=== PATIENT | female | born 1965 | race African-American/Black ===

== ENCOUNTER → 2016-12-08 | Outpatient (CLI) | payer OTHER ==
[2016-12-08 10:34] LABS: ABSOLUTE LYMPHOCYTES (AUTO) 0.8 10^3/uL (0.5-4.7); ABSOLUTE MONOCYTES (AUTO) 0.5 10^3/uL (0.1-1.4); ABSOLUTE NEUT (AUTO) 2.2 10^3/uL (1.7-8.2); BASOPHILS % (AUTO) 0.6 % (0-2); EOSINOPHILS % (AUTO) 1.1 % (0-6); HEMATOCRIT 35.5 % (36.0-47.0); HEMOGLOBIN 12.3 g/dL (12.0-15.5); HGB HCT DIFFERENCE 1.4; LYMPHOCYTES % (AUTO) 23.7 % (13-45); MEAN CORPUSCULAR HEMOGLOBIN 36.2 pg (27.0-33.4); MEAN CORPUSCULAR HGB CONC 34.7 g/dL (32.0-36.0); MEAN CORPUSCULAR VOLUME 104 fl (80-97); MONOCYTES % (AUTO) 13.2 % (3-13); RED BLOOD COUNT 3.41 10^6/uL (3.72-5.28); RED CELL DISTRIBUTION WIDTH 23.8 % (11.5-14.0); SEGMENTED NEUTROPHILS % (AUTO) 61.4 % (42-78); WHITE BLOOD COUNT 3.6 10^3/uL (4.0-10.5)
[2016-12-08 11:04] LABS: ALANINE AMINOTRANSFERASE 89 U/L (9-52); ALBUMIN 4.2 g/dL (3.5-5.0); ALKALINE PHOSPHATASE 68 U/L (38-126); ANION GAP 12 (5-19); ASPARTATE AMINO TRANSFERASE 80 U/L (14-36); BILIRUBIN,DIRECT 0.5 mg/dL (0.0-0.4); BILIRUBIN,TOTAL 0.9 mg/dL (0.2-1.3); BLOOD UREA NITROGEN 9 mg/dL (7-20); C-REACTIVE PROTEIN 10.4 mg/L (<10.0); CARBON DIOXIDE 30 mmol/L (22-30); CHLORIDE 105 mmol/L (98-107); CREATINE KINASE 1594 U/L (30-135); CREATININE RESULT 0.68 mg/dL (0.52-1.25); GLUCOSE 91 mg/dL (75-110); POTASSIUM 3.8 mmol/L (3.6-5.0); SODIUM 147.1 mmol/L (137-145); TOTAL PROTEIN 7.4 g/dL (6.3-8.2); URIC ACID 4.7 mg/dL (2.5-7.5)
[2016-12-08 11:14] LABS: ERYTHROCYTE SEDIMENTATION RATE 35 mm/hr (0-20)
[2016-12-09 10:29] LABS: VITAMIN D 25-HYDROXY 14.1 ng/mL (30.0-100.0)
[2016-12-10 13:32] LABS: ALDOLASE 17.5 U/L (3.3-10.3)
[2016-12-13 07:12] LABS: QUANTIFERON TB ANTIGEN VALUE 0.12 IU/mL (.); QUANTIFERON TB NIL VALUE 0.12 IU/mL (.)
== END ==
LOC: CCC 09:48
DX: M33.20 Polymyositis, organ involvement unspecified (principal); I10 Essential (primary) hypertension
CPT/HCPCS: 36415; 80053; 82085; 82306; 82550; 83036; 84443; 84550; 85025; 85652; 86140; 86480

== ENCOUNTER 2017-01-16 07:06 | Emergency (ER) | payer SELFPAY ==
--- NOTE | 2017-01-16 08:33 | ER Document Report ---
ED General - General Chief Complaint: Shoulder Pain Stated Complaint: BACK/SHOULDER/ARM PAIN Time Seen by Provider: 01/16/17 08:05 Notes: Patient with a h/o HTN, polymyositis comes to the office c/o rt scapular/ posterior shoulder pain x1 week. 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 She began having the pain the next morning. The pain is described as sharp and radiates to the rt UE into the hand. Pt states she will have occ rt hand tingling on occ. Pt states that taking otc ibuprofen did help the discomfort. The pain is made worse when she tries to use her rt arm/shoulder. Denies any fever, URI symptoms, CP, palp, syncope, cough, sob, dyspnea, abd pain, n/v/d, dysuria, or rash. Pt states she is able to ambulate without any CP, sob, dyspnea, PASCUAL. No allergies No prev surgeries No previous history of cancer, NE, CVA. No history of smoking Patient takes amlodipine, Toprol, prednisone, methotrexate. TRAVEL OUTSIDE OF THE [place] IN LAST 30 DAYS: No - Related Data Allergies/Adverse Reactions: No Known Allergies Allergy (Verified 11/18/15 16:16) Past Medical History - Social History Smoking Status: Never Smoker Family History: Reviewed & Not Pertinent Patient has suicidal ideation: No Patient has homicidal ideation: No - Past Medical History Cardiac Medical History: Reports: Hx Hypertension Renal/ Medical History: Denies: Hx Peritoneal Dialysis Musculoskeltal Medical History: Reports Hx Arthritis - raynauds Psychiatric Medical History: Reports: Hx Depression Past Surgical History: Reports: Hx Cardiac Catheterization - Immunizations Hx Diphtheria, Pertussis, Tetanus Vaccination: Yes Hx Pneumococcal Vaccination: 05/07/13 Review of Systems - Review of Systems Notes: REVIEW OF SYSTEMS: CONSTITUTIONAL : Denies fever, chills, or sweats. Denies recent illness. EENT: Denies eye, ear, throat, or mouth pain or symptoms. Denies nasal or sinus congestion or discharge. Denies throat, tongue, or mouth swelling or difficulty swallowing. CARDIOVASCULAR: Denies chest pain. Denies palpitations or racing or irregular heart beat. Denies ankle edema. RESPIRATORY: Denies cough, cold, or chest congestion. Denies shortness of breath, difficulty breathing, or wheezing. GASTROINTESTINAL: Denies abdominal pain or distention. Denies nausea, vomiting , or diarrhea. Denies blood in vomitus, stools, or per rectum. Denies black, tarry stools. Denies constipation. GENITOURINARY: Denies difficulty urinating, painful urination, burning, frequency, blood in urine, or discharge. MUSCULOSKELETAL: see hpi SKIN: Denies rash, lesions or sores. HEMATOLOGIC : Denies easy bruising or bleeding.llen, enlarged glands. NEUROLOGICAL: Denies confusion or altered mental status. Denies passing out or loss of consciousness. Denies dizziness or lightheadedness. Denies headache. Denies weakness or paralysis or loss of use of either side. Denies problems with gait or speech. Denies sensory loss, numbness, or tingling. Denies seizures. ALL OTHER SYSTEMS REVIEWED AND NEGATIVE. Dictation was performed using [employer] voice recognition software Physical Exam - Vital signs Vitals: Temp Pulse Resp BP Pulse Ox 98.3 F 72 16 169/95 H 97 01/16/17 07:10 01/16/17 07:10 01/16/17 07:10 01/16/17 07:10 01/16/17 07:10 Notes: PHYSICAL EXAMINATION: GENERAL: Well-appearing, well-nourished and in no acute distress. HEAD: Atraumatic, normocephalic. EYES: Pupils equal round and reactive to light, extraocular movements intact, sclera anicteric, conjunctiva are normal. ENT: EAC clear b/l. TM's intact b/l without erythema, fluid, or perforation. Nares patent and without discharge. oropharynx clear without exudates. No tonsilar hypertrophy or erythema. Moist mucous membranes. No sinus tenderness. NECK: Normal range of motion, supple without lymphadenopathy. Non-tender. No nuchal rigidity. No meningismus. LUNGS: Breath sounds clear to auscultation bilaterally and equal. No wheezes rales or rhonchi. Chest: no deformity. Symmetric. Non-tender. HEART: Regular rate and rhythm without murmurs, rubs, gallops. ABDOMEN: Soft, nontender, nondistended abdomen. No guarding, no rebound. No masses appreciated. Normal bowel sounds present. No CVA tenderness bilaterally. Musculoskeletal: Rt UE: FROM to passive/active. Strength 5+/5. No RC deficit. Reflexes 2+. Pulses 2+ and equal b/l. No impingement or palp tenderness. Tinel/ phalen neg. Ribbon Winder strength 5+/5. Sensation intact. Back: FROM to passive/active. Strength 5+/5. + tenderness to the rt paraspinal mm near T5-7. Lateral displacement of scapula further causes more superficial discomfort. No bony tenderness. No midline tenderness. No ecchymosis, abrasion, laceration, or signs of trauma/deformity. Tenderness elicited matches pain described. Extremities: No cyanosis, clubbing, or edema b/l. Peripheral pulses 2+ to LE b /l. Capillary refill less than 3 seconds. NEUROLOGICAL: MMSE intact. Cranial nerves grossly intact. Normal speech, normal gait. Normal sensory, motor exams PSYCH: Normal mood, normal affect. SKIN: Warm, Dry, normal turgor, no rashes or lesions noted. Course - Re-evaluation Re-evalutation: Patient has been afebrile, well-hydrated, 51-year-old female who presents with right paraspinal thoracic back pain. Patient is in no acute distress. Vitals are stable. PE remarkable for musculoskeletal etiology. EKG unremarkable. Pulses are equal bilaterally to periphery. Unremarkable neuro exam. H/o HTN. Other low risk factors: no smoking or h/o CA, CVA, NE. Recheck with her PCM in 2 -3 days. Return to ED with worsening symptoms. After performing a Medical Screening Examination, I estimate there is LOW risk for EXPANDING OR RUPTURED ABDOMINAL AORTIC ANEURYSM, CAUDA EQUINA SYNDROME, EPIDURAL MASS LESION, or HERNIATED DISK CAUSING SEVERE SPINAL STENOSIS, thus I consider the discharge disposition reasonable. I have reevaluated this patient multiple times and no significant life threatening changes are noted. The patient and I have discussed the diagnosis and risks, and we agree with discharging home and close follow-up. We also discussed returning to the Emergency Department immediately if new or worsening symptoms occur with the understanding that symptoms and presentations can change. We have discussed the symptoms which are most concerning (e.g., saddle anesthesia, urinary or bowel incontinence or retention, chest pain, sob, dyspnea, palpitations, syncope, HIGHTOWER, changing or worsening pain) that necessitate immediate return. 01/16/17 09:29 - Vital Signs Vital signs: Temp Pulse Resp BP Pulse Ox 98.1 F 81 16 175/92 H 98 06/12/17 10:14 01/16/17 10:14 01/16/17 10:14 01/16/17 10:14 01/16/17 10:14 Discharge - Discharge Clinical Impression: Muscle strain Thoracic back pain Qualifiers: Chronicity: acute Back pain laterality: left Qualified Code(s): M54.6 - Pain in thoracic spine Condition: Stable Disposition: HOME, SELF-CARE Additional Instructions: Rest, Ice Tylenol/ibuprofen as needed Light stretches daily Strength exercises as able Moist heat and massage may help F/u with your PCP in 2-3 days for a recheck Consider consult(s) with Orthopedics for ongoing/worsening symptoms Return to the ED with any worsening pain, swelling, numbness/tingling, muscle weakness, saddle anesthesia, urinary or bowel incontinence or retention, chest pain, shortness of breath, trouble breathing, palpitations, syncope, HIGHTOWER, changing or worsening pain, or development of fever. Prescriptions: Meloxicam 7.5 mg PO BID PRN #30 tablet PRN Reason: Forms: Elevated Blood Pressure, Parent Work Note, Return to Work
--- NOTE | 2017-01-16 09:24 | EKG REPORT ---
SEVERITY:- NORMAL ECG - SINUS RHYTHM : Confirmed by: Meaghan Swanson 16-Jan-2017 09:24:06
[2017-01-16] MEDS ORDERED: KETOROLAC TROMETHAMINE 60 MG/2 ML SDV IM ONE (09:37)
[2017-01-16 10:15] VITALS: BP 175/92
== END 2017-01-16 10:15 | disposition home or self-care (01) ==
LOC: ER 07:06
DX: T14.8 Other injury of unspecified body region (principal); X50.0XXA Overexertion from strenuous movement or load, initial encounter; M54.6 Pain in thoracic spine; M25.511 Pain in right shoulder; R20.2 Paresthesia of skin; I10 Essential (primary) hypertension; M19.90 Unspecified osteoarthritis, unspecified site; Z88.8 Allergy status to other drugs, medicaments and biological substances; Z79.52 Long term (current) use of systemic steroids
CPT/HCPCS: 93005; 99283; 96372; 93010; J1885

== ENCOUNTER → 2017-02-03 | Outpatient (CLI) | payer MEDICARE ==
[2017-02-03 08:19] LABS: ABSOLUTE LYMPHOCYTES (AUTO) 1.1 10^3/uL (0.5-4.7); ABSOLUTE MONOCYTES (AUTO) 0.3 10^3/uL (0.1-1.4); ABSOLUTE NEUT (AUTO) 1.9 10^3/uL (1.7-8.2); BASOPHILS % (AUTO) 0.4 % (0-2); EOSINOPHILS % (AUTO) 1.2 % (0-6); HEMATOCRIT 39.8 % (36.0-47.0); HEMOGLOBIN 13.1 g/dL (12.0-15.5); HGB HCT DIFFERENCE -0.5; LYMPHOCYTES % (AUTO) 32.8 % (13-45); MEAN CORPUSCULAR HEMOGLOBIN 34.9 pg (27.0-33.4); MEAN CORPUSCULAR HGB CONC 32.8 g/dL (32.0-36.0); MEAN CORPUSCULAR VOLUME 106 fl (80-97); MONOCYTES % (AUTO) 9.2 % (3-13); RED BLOOD COUNT 3.74 10^6/uL (3.72-5.28); RED CELL DISTRIBUTION WIDTH 17.4 % (11.5-14.0); SEGMENTED NEUTROPHILS % (AUTO) 56.4 % (42-78); WHITE BLOOD COUNT 3.4 10^3/uL (4.0-10.5)
[2017-02-03 08:52] LABS: ALANINE AMINOTRANSFERASE 162 U/L (9-52); ALBUMIN 4.4 g/dL (3.5-5.0); ALKALINE PHOSPHATASE 68 U/L (38-126); ANION GAP 11 (5-19); ASPARTATE AMINO TRANSFERASE 166 U/L (14-36); BILIRUBIN,DIRECT 0.5 mg/dL (0.0-0.4); BLOOD UREA NITROGEN 12 mg/dL (7-20); C-REACTIVE PROTEIN 5.7 mg/L (<10.0); CARBON DIOXIDE 31 mmol/L (22-30); CHLORIDE 101 mmol/L (98-107); CREATINE KINASE 1332 U/L (30-135); CREATININE RESULT 0.68 mg/dL (0.52-1.25); GLUCOSE 94 mg/dL (75-110); POTASSIUM 3.1 mmol/L (3.6-5.0); TOTAL PROTEIN 7.7 g/dL (6.3-8.2); URIC ACID 4.9 mg/dL (2.5-7.5)
[2017-02-03 09:03] LABS: ERYTHROCYTE SEDIMENTATION RATE 33 mm/hr (0-20)
== END ==
LOC: OD 07:22
PROVIDERS: ATTEND Internal Medicine Rheumatology
DX: M33.20 Polymyositis, organ involvement unspecified (principal); Z79.899 Other long term (current) drug therapy
CPT/HCPCS: 36415; 80053; 82550; 84550; 85025; 85652; 86140

== ENCOUNTER → 2017-07-21 | Outpatient (CLI) | payer MEDICARE ==
[2017-07-21 08:40] LABS: ABSOLUTE EOSINOPHILS # (AUTO) 0.1 10^3/uL (0.0-0.6); ABSOLUTE LYMPHOCYTES (AUTO) 1.2 10^3/uL (0.5-4.7); ABSOLUTE MONOCYTES (AUTO) 0.6 10^3/uL (0.1-1.4); ABSOLUTE NEUT (AUTO) 1.9 10^3/uL (1.7-8.2); BASOPHILS % (AUTO) 0.6 % (0-2); EOSINOPHILS % (AUTO) 1.5 % (0-6); HEMATOCRIT 38.4 % (36.0-47.0); HGB HCT DIFFERENCE 0.6; LYMPHOCYTES % (AUTO) 32.7 % (13-45); MEAN CORPUSCULAR HGB CONC 33.7 g/dL (32.0-36.0); MONOCYTES % (AUTO) 14.8 % (3-13); RED BLOOD COUNT 3.24 10^6/uL (3.72-5.28); RED CELL DISTRIBUTION WIDTH 16.9 % (11.5-14.0); SEGMENTED NEUTROPHILS % (AUTO) 50.4 % (42-78); WHITE BLOOD COUNT 3.7 10^3/uL (4.0-10.5)
[2017-07-21 09:01] LABS: ANISOCYTOSIS 1+; OVALOCYTES 1+; POIKILOCYTOSIS SLIGHT; POLYCHROMASIA SLIGHT
[2017-07-21 09:04] LABS: MEAN CORPUSCULAR VOLUME 119 fl (80-97)
[2017-07-21 09:09] LABS: ALANINE AMINOTRANSFERASE 69 U/L (9-52); ALKALINE PHOSPHATASE 67 U/L (38-126); ANION GAP 9 (5-19); ASPARTATE AMINO TRANSFERASE 81 U/L (14-36); BILIRUBIN,DIRECT 0.4 mg/dL (0.0-0.4); BILIRUBIN,TOTAL 0.7 mg/dL (0.2-1.3); BLOOD UREA NITROGEN 10 mg/dL (7-20); C-REACTIVE PROTEIN 10.9 mg/L (<10.0); CALCIUM 9.3 mg/dL (8.4-10.2); CARBON DIOXIDE 32 mmol/L (22-30); CHLORIDE 104 mmol/L (98-107); CREATINE KINASE 833 U/L (30-135); CREATININE RESULT 0.66 mg/dL (0.52-1.25); GLUCOSE 79 mg/dL (75-110); POTASSIUM 3.5 mmol/L (3.6-5.0); SODIUM 145.4 mmol/L (137-145)
[2017-07-21 09:22] LABS: ERYTHROCYTE SEDIMENTATION RATE 32 mm/hr (0-20)
[2017-07-21 14:34] LABS: PATH REVIEW PATHOLOGIST REVIEWED
== END ==
LOC: OD 07:20
PROVIDERS: ATTEND Internal Medicine Rheumatology
DX: M33.21 Polymyositis with respiratory involvement (principal); E55.9 Vitamin D deficiency, unspecified; M79.1 Myalgia; M35.3 Polymyalgia rheumatica; M25.50 Pain in unspecified joint; Z79.899 Other long term (current) drug therapy; M54.5 Low back pain
CPT/HCPCS: 36415; 80053; 82550; 85025; 85652; 86140

== ENCOUNTER 2017-10-18 11:10 | Emergency (ER) | payer MEDICARE, OTHER ==
--- NOTE | 2017-10-18 12:10 | ER Document Report ---
ED Medical Screen (RME) - General Chief Complaint: General Weakness Stated Complaint: WEAKNESS, LEG PAIN Time Seen by Provider: 10/18/17 12:08 Notes: pt has hx of polymyositis and presents with bilat leg pain/weakness. feels like "flare up" of her polymyo TRAVEL OUTSIDE OF THE [place] IN LAST 30 DAYS: No - Related Data Allergies/Adverse Reactions: No Known Allergies Allergy (Verified 10/18/17 11:11) Past Medical History - Social History Chew tobacco use (# tins/day): No Frequency of alcohol use: None Drug Abuse: None - Past Medical History Cardiac Medical History: Reports: Hx Hypertension Renal/ Medical History: Denies: Hx Peritoneal Dialysis Musculoskeltal Medical History: Reports Hx Arthritis - raynauds Psychiatric Medical History: Reports: Hx Depression Past Surgical History: Reports: Hx Cardiac Catheterization - Immunizations Hx Diphtheria, Pertussis, Tetanus Vaccination: Yes Physical Exam - Vital signs Vitals: Temp Pulse Resp BP Pulse Ox 98.6 F 65 16 133/76 H 100 10/18/17 11:25 10/18/17 11:25 10/18/17 11:25 10/18/17 11:25 10/18/17 11:25 Course - Vital Signs Vital signs: Temp Pulse Resp BP Pulse Ox 98.6 F 65 16 133/76 H 100 10/18/17 11:25 10/18/17 11:25 10/18/17 11:25 10/18/17 11:25 10/18/17 11:25
[2017-10-18 13:15] LABS: HEMATOCRIT 43.1 % (36.0-47.0); HEMOGLOBIN 14.4 g/dL (12.0-15.5); MEAN CORPUSCULAR HEMOGLOBIN 40.2 pg (27.0-33.4); MEAN CORPUSCULAR HGB CONC 33.4 g/dL (32.0-36.0); MEAN CORPUSCULAR VOLUME 121 fl (80-97); PLATELET COUNT 109 10^3/uL (150-450); RED BLOOD COUNT 3.57 10^6/uL (3.72-5.28); RED CELL DISTRIBUTION WIDTH 16.6 % (11.5-14.0); WHITE BLOOD COUNT 5.9 10^3/uL (4.0-10.5)
[2017-10-18 13:39] LABS: ALANINE AMINOTRANSFERASE 54 U/L (9-52); ALBUMIN 4.6 g/dL (3.5-5.0); ALKALINE PHOSPHATASE 72 U/L (38-126); ANION GAP 13 (5-19); ASPARTATE AMINO TRANSFERASE 68 U/L (14-36); BILIRUBIN,DIRECT 0.3 mg/dL (0.0-0.4); BILIRUBIN,TOTAL 0.7 mg/dL (0.2-1.3); BLOOD UREA NITROGEN 10 mg/dL (7-20); CALCIUM 9.8 mg/dL (8.4-10.2); CARBON DIOXIDE 29 mmol/L (22-30); CHLORIDE 104 mmol/L (98-107); CREATINE KINASE 341 U/L (30-135); GLUCOSE 102 mg/dL (75-110); POTASSIUM 4.1 mmol/L (3.6-5.0); TOTAL PROTEIN 7.9 g/dL (6.3-8.2)
[2017-10-18 13:45] LABS: ABSOLUTE LYMPHOCYTES# (MANUAL) 0.8 10^3/uL (0.5-4.7); ABSOLUTE MONOCYTES # (MANUAL) 0.2 10^3/uL (0.1-1.4); ABSOLUTE NEUTROPHILS# (MANUAL) 4.9 10^3/uL (1.7-8.2); ANISOCYTOSIS 2+; BASOPHILS % (MANUAL) 0 % (0-2); EOSINOPHILS % (MANUAL) 0 % (0-6); HYPOCHROMASIA SLIGHT; LYMPHOCYTES % (MANUAL) 13 % (13-45); MONOCYTES % (MANUAL) 3 % (3-13); PLATELET COMMENT DECREASED; POLYCHROMASIA SLIGHT; SEGMENTED NEUTROPHILS % (MAN) 83 % (42-78); TOTAL CELLS COUNTED 100
[2017-10-18] MEDS ORDERED: NORMAL SALINE 1000 ML 1,000 ML IV ONE (13:46)
--- NOTE | 2017-10-18 13:47 | ER Document Report ---
ED General - General Chief Complaint: General Weakness Stated Complaint: WEAKNESS, LEG PAIN Time Seen by Provider: 10/18/17 12:08 Notes: Patient is a 51-year-old female who presents emergency department with past medical history significant for polymyositis and dermatomyositis with a chief complaint of weakness for the past 3 weeks. States it is worse in her legs. Patient follows with Dr. Cardona but states that she skipped her most recent appointment due to scheduling issues. States that last time she saw him was back in July. Her medications include methotrexate, 5 mg of prednisone, folic acid, amlodipine, metoprolol and azathioprine she otherwise denies any. Focal discomfort or pain. She denies any fevers, chills, lethargy, nausea, vomiting, abdominal pain, back pain, pyuria, hematuria, decreased urine output. Patient states she has been drinking plenty of water and taking her medications as directed. Past medical history significant for hypertension, history of atrial fibrillation, as above. Past surgical history is previous tubal ligation Social history admits to former tobacco use denies any alcohol or drug use. Denies any allergies Follows with Dr. Cardona is her primary care provider TRAVEL OUTSIDE OF THE [place] IN LAST 30 DAYS: No - Related Data Allergies/Adverse Reactions: No Known Allergies Allergy (Verified 10/18/17 11:11) Past Medical History - Social History Smoking Status: Never Smoker Chew tobacco use (# tins/day): No Frequency of alcohol use: None Drug Abuse: None Family History: Reviewed & Not Pertinent Patient has suicidal ideation: No Patient has homicidal ideation: No - Past Medical History Cardiac Medical History: Reports: Hx Hypertension Renal/ Medical History: Denies: Hx Peritoneal Dialysis Musculoskeltal Medical History: Reports Hx Arthritis - raynauds Psychiatric Medical History: Reports: Hx Depression Past Surgical History: Reports: Hx Cardiac Catheterization - Immunizations Hx Diphtheria, Pertussis, Tetanus Vaccination: Yes Hx Pneumococcal Vaccination: 05/07/13 Review of Systems - Review of Systems Notes: REVIEW OF SYSTEMS: CONSTITUTIONAL : Denies fever, chills, or sweats. Denies recent illness. EENT: Denies eye, ear, throat, or mouth pain or symptoms. Denies nasal or sinus congestion or discharge. Denies throat, tongue, or mouth swelling or difficulty swallowing. CARDIOVASCULAR: Denies chest pain. Denies palpitations or racing or irregular heart beat. Denies ankle edema. RESPIRATORY: Denies cough, cold, or chest congestion. Denies shortness of breath, difficulty breathing, or wheezing. GASTROINTESTINAL: Denies abdominal pain or distention. Denies nausea, vomiting , or diarrhea. Denies blood in vomitus, stools, or per rectum. Denies black, tarry stools. Denies constipation. GENITOURINARY: Denies difficulty urinating, painful urination, burning, frequency, blood in urine, or discharge. MUSCULOSKELETAL: See HPI Denies any muscle spasms, difficulty walking, extremity pain SKIN: Denies rash, lesions or sores. HEMATOLOGIC : Denies easy bruising or bleeding. LYMPHATIC: Denies swollen, enlarged glands. NEUROLOGICAL: Denies confusion or altered mental status. Denies passing out or loss of consciousness. Denies dizziness or lightheadedness. Denies headache. Denies weakness or paralysis or loss of use of either side. Denies problems with gait or speech. Denies sensory loss, numbness, or tingling. Denies seizures. PSYCHIATRIC: Denies anxiety or stress. Denies depression, suicidal ideation, or homicidal ideation. ALL OTHER SYSTEMS REVIEWED AND NEGATIVE. Dictation was performed using [employer] voice recognition software Physical Exam - Vital signs Vitals: Temp Pulse Resp BP Pulse Ox 98.6 F 65 16 133/76 H 100 10/18/17 11:25 10/18/17 11:25 10/18/17 11:25 10/18/17 11:25 10/18/17 11:25 - Notes Notes: PHYSICAL EXAM GENERAL: Alert, interacts well. HEAD: Normocephalic, atraumatic. EYES: Pupils equal, round, and reactive to light. Extraocular movements intact. ENT: Oral mucosa moist, tongue midline. NECK: Full range of motion. Supple. Trachea midline. LUNGS: Clear to auscultation bilaterally, no wheezes, rales, or rhonchi. No respiratory distress. HEART: Regular rate and rhythm. No murmurs, gallops, or rubs. ABDOMEN: Soft, nondistended, nontender. No guarding, rebound, or rigidity.. Bowel sounds present in all 4 quadrants. EXTREMITIES: Moves all 4 extremities spontaneously. No edema, radial and dorsalis pedis pulses 2/4 bilaterally. No cyanosis. NEUROLOGICAL: Alert and oriented x4. Normal speech. Face symmetric. Tongue protrudes midline. Extraocular motions intact. Pupils are 2 mm and equally reactive. Normal speech, normal gait. 5 out of 5 strength in both the distal and proximal upper and lower extremities bilaterally. Sensation is grossly intact throughout. Finger to nose testing normal. Pronator drift normal. PSYCH: Normal affect, normal mood. SKIN: Warm, dry, normal turgor. No rashes or lesions noted. Course - Re-evaluation Re-evalutation: 10/18/17 14:10 Patient is a 51-year-old female is hemodynamically stable, no acute distress and afebrile. Presentation is consistent with patient's underlying diagnosis of polymyositis and dermatomyositis. Vital signs stable without evidence of fever, dehydration. CBC stable without evidence of leukocytosis, anemia. Chemistry panel stable without any abnormalities. Mild elevation with a CK of 340 without any associated acute renal failure. Urinalysis without any evidence of protein, hematuria. Called Dr Skinner office to see if they have any additional recommendations or any specific follow-up waiting for callback 10/18/17 15:19 Discussed case with patient's nurse who recommends that she does not need any specific discharge medications and agrees that this is consistent with her history. Discussed to have her call their office tomorrow to schedule a follow- up. Patient states she feels much better after IV fluids. His been tolerating p.o. without any difficulty and vital signs remained stable. Patient is stable for discharge home. - Vital Signs Vital signs: Temp Pulse Resp BP Pulse Ox 98.6 F 84 18 125/82 100 10/18/17 11:25 10/18/17 15:00 10/18/17 15:00 10/18/17 15:00 10/18/17 15:00 - Laboratory Result Diagrams: 10/18/17 12:55 10/18/17 12:55 Laboratory results interpreted by me: 10/18/17 10/18/17 12:55 12:55 RBC 3.57 L MCV 121 H MCH 40.2 H RDW 16.6 H Plt Count 109 L Seg Neuts % (Manual) 83 H ESR 35 H Sodium 146.0 H AST 68 H ALT 54 H Creatine Kinase 341 H Discharge - Discharge Clinical Impression: Polymyositis associated with autoimmune disease, Polymyositis with myopathy Condition: Good Disposition: HOME, SELF-CARE Additional Instructions: There is no indication for complications associated with your history of polymyositis. Please be sure to stay hydrated at home. Please call Dr. Cardona' s office tomorrow to discuss follow-up. Please return to the emergency department with any fever, chills, flank/back pain, decreased urine output, nausea, vomiting or any symptoms that are concerning to you. Referrals: NIURKA CARDONA MD [ACTIVE STAFF] - Follow up tomorrow
[2017-10-18 13:53] LABS: APPEARANCE,URINE CLEAR; BILIRUBIN,URINE NEGATIVE (NEGATIVE); COLOR,URINE YELLOW; GLUCOSE, URINE NEGATIVE (NEGATIVE); KETONES,URINE NEGATIVE (NEGATIVE); LEUKOCYTE ESTERASE,URINE NEGATIVE (NEGATIVE); NITRITE,URINE NEGATIVE (NEGATIVE); PROTEIN,URINE NEGATIVE (NEGATIVE); URINE SPECIFIC GRAVITY 1.005; UROBILINOGEN,URINE NEGATIVE mg/dL (<2.0)
[2017-10-18 13:56] LABS: ERYTHROCYTE SEDIMENTATION RATE 35 mm/hr (0-20)
[2017-10-18 16:26] VITALS: BP 132/80
== END 2017-10-18 16:26 | disposition home or self-care (01) ==
LOC: ER 11:10
DX: M33.22 Polymyositis with myopathy (principal); M33.90 Dermatopolymyositis, unspecified, organ involvement unspecified; R53.1 Weakness; Z79.899 Other long term (current) drug therapy; I10 Essential (primary) hypertension; I48.91 Unspecified atrial fibrillation; Z98.51 Tubal ligation status; Z87.891 Personal history of nicotine dependence
CPT/HCPCS: 99285; 36415; 82550; 85025; 85652; 80053; 81001; J7030

== ENCOUNTER 2018-08-16 17:27 | Emergency (ER) | payer MEDICARE ==
--- NOTE | 2018-08-16 18:28 | ER Document Report ---
ED Medical Screen (RME) - General Chief Complaint: Dizziness Stated Complaint: DIZZINESS Time Seen by Provider: 08/16/18 18:26 Notes: 52 years old female presents today noticing a lump on the top of her head last few days. In 2 months history of headache, currently having difficulty in walking and vomiting. Also had blurring of vision .no denies any difficulty in using the upper limbs. A slight swelling noted over the frontoparietal region in the midline. No pronator drift. Good strength over the upper limbs or lower limbs. TRAVEL OUTSIDE OF THE [place] IN LAST 30 DAYS: No - Related Data Allergies/Adverse Reactions: No Known Allergies Allergy (Verified 08/16/18 17:40) Past Medical History - Past Medical History Cardiac Medical History: Reports: Hx Hypertension Renal/ Medical History: Denies: Hx Peritoneal Dialysis Musculoskeltal Medical History: Reports Hx Arthritis - raynauds Psychiatric Medical History: Reports: Hx Depression Past Surgical History: Reports: Hx Cardiac Catheterization - Immunizations Hx Diphtheria, Pertussis, Tetanus Vaccination: Yes Physical Exam - Vital signs Vitals: Temp Pulse Resp BP Pulse Ox 98.8 F 70 16 114/70 100 08/16/18 18:00 08/16/18 18:00 08/16/18 18:00 08/16/18 18:00 08/16/18 18:00 Course - Vital Signs Vital signs: Temp Pulse Resp BP Pulse Ox 98.8 F 70 16 114/70 100 08/16/18 18:00 08/16/18 18:00 08/16/18 18:00 08/16/18 18:00 08/16/18 18:00 Doctor's Discharge - Discharge Referrals: DINO MCDONALD MD [Primary Care Provider] - Follow up as needed
--- NOTE | 2018-08-16 19:34 | RADIOLOGY REPORT (SQ) ---
EXAM DESCRIPTION: CT HEAD WITHOUT COMPLETED DATE/TIME: 08/16/2018 7:20 pm REASON FOR STUDY: Headache/mass COMPARISON: None. TECHNIQUE: Axial images acquired through the brain without intravenous contrast. Images reviewed wi th bone, brain and subdural windows. Images stored on PACS. All CT scanners at this facility use dose modulation, iterative reconstruction, and/or weight based d osing when appropriate to reduce radiation dose to as low as reasonably achievable (ALARA). [facility]: Dose Right [facility]: CareDose [facility]: Dose Right [facility]: Teradose 4D [facility]: Owlparrot RADIATION DOSE: CT Rad equipment meets quality standard of care and radiation dose reduction techniq ues were employed. CTDIvol: 53.2 mGy. DLP: 1070 mGy-cm. mGy. LIMITATIONS: None. FINDINGS: VENTRICLES: Normal size and contour. CEREBRUM: No masses. No hemorrhage. No midline shift. No evidence for acute infarction. Normal gra y/white matter differentiation. No areas of low density in the white matter. CEREBELLUM: No masses. No hemorrhage. No alteration of density. No evidence for acute infarction. EXTRAAXIAL SPACES: No fluid collections. No masses. ORBITS AND GLOBE: No intra- or extraconal masses. Normal contour of globe without masses. CALVARIUM: No fracture. PARANASAL SINUSES: No fluid or mucosal thickening. SOFT TISSUES: No mass or hematoma. OTHER: No other significant finding. IMPRESSION: NORMAL BRAIN CT WITHOUT CONTRAST. EVIDENCE OF ACUTE STROKE: NO. COMMENT: Quality ID # [id number]: Final reports with documentation of one or more dose reduction techniques (e.g., Automated exposure control, adjustment of the mA and/or kV according to patient size, use of iterative reconstruction technique) TECHNICAL DOCUMENTATION: JOB ID: [id number]- All Rights Reserved Reading location - IP/workstation name: [email or web address]
[2018-08-16 19:47] LABS: HEMATOCRIT 35.8 % (36.0-47.0); HEMOGLOBIN 12.7 g/dL (12.0-15.5); MEAN CORPUSCULAR HEMOGLOBIN 44.5 pg (27.0-33.4); MEAN CORPUSCULAR HGB CONC 35.5 g/dL (32.0-36.0); MEAN CORPUSCULAR VOLUME 126 fl (80-97); RED BLOOD COUNT 2.85 10^6/uL (3.72-5.28); RED CELL DISTRIBUTION WIDTH 17.3 % (11.5-14.0)
[2018-08-16 19:48] LABS: PLATELET COUNT 81 10^3/uL (150-450)
[2018-08-16 20:00] LABS: ABSOLUTE LYMPHOCYTES# (MANUAL) 0.5 10^3/uL (0.5-4.7); ABSOLUTE MONOCYTES # (MANUAL) 0.4 10^3/uL (0.1-1.4); ABSOLUTE NEUTROPHILS# (MANUAL) 2.1 10^3/uL (1.7-8.2); BASOPHILS % (MANUAL) 0 % (0-2); EOSINOPHILS % (MANUAL) 2 % (0-6); LYMPHOCYTES % (MANUAL) 15 % (13-45); MONOCYTES % (MANUAL) 13 % (3-13); SEGMENTED NEUTROPHILS % (MAN) 70 % (42-78); TOTAL CELLS COUNTED 100
[2018-08-16 20:01] LABS: ANISOCYTOSIS 1+; POIKILOCYTOSIS SLIGHT; TOXIC GRANULATION SLIGHT
[2018-08-16 20:02] LABS: PLATELET COMMENT DECREASED
[2018-08-16 20:11] LABS: ALANINE AMINOTRANSFERASE 48 U/L (9-52); ALBUMIN 4.3 g/dL (3.5-5.0); ALKALINE PHOSPHATASE 77 U/L (38-126); ANION GAP 8 (5-19); ASPARTATE AMINO TRANSFERASE 85 U/L (14-36); BILIRUBIN,DIRECT 0.6 mg/dL (0.0-0.4); BILIRUBIN,TOTAL 2.1 mg/dL (0.2-1.3); BLOOD UREA NITROGEN 10 mg/dL (7-20); CARBON DIOXIDE 29 mmol/L (22-30); CHLORIDE 105 mmol/L (98-107); GLUCOSE 100 mg/dL (75-110); POTASSIUM 3.7 mmol/L (3.6-5.0); SODIUM 141.8 mmol/L (137-145); TOTAL PROTEIN 7.8 g/dL (6.3-8.2)
--- NOTE | 2018-08-16 21:30 | ER Document Report ---
ED General - General Chief Complaint: Dizziness Stated Complaint: DIZZINESS Time Seen by Provider: 08/16/18 18:26 Notes: Patient is a 52-year-old female that comes to the emergency department for chief complaint of 2 months of symptoms of congestion, runny nose, frequently when she stands up she will get a spinning sensation and occasionally nausea, she states this quickly resolves. She denies imbalance. She denies a spinning sensation now. She states her only current symptom is some congestion. She denies headache. She denies head injury. She states she was examining her skull and she noticed a bump on the left midline which she thinks might be new but she is not certain. She denies fever or chills. Past medical history of polymyositis, on prednisone, following with rheumatology. Also has a past medical history of hypertension. TRAVEL OUTSIDE OF THE [place] IN LAST 30 DAYS: No - Related Data Allergies/Adverse Reactions: No Known Allergies Allergy (Verified 08/16/18 17:40) Past Medical History - General Information source: Patient - Social History Smoking Status: Never Smoker Chew tobacco use (# tins/day): No Frequency of alcohol use: None Drug Abuse: None Lives with: Family Family History: Reviewed & Not Pertinent Patient has suicidal ideation: No Patient has homicidal ideation: No - Past Medical History Cardiac Medical History: Reports: Hx Hypertension Renal/ Medical History: Denies: Hx Peritoneal Dialysis Musculoskeletal Medical History: Reports Hx Arthritis - raynauds Psychiatric Medical History: Reports: Hx Depression Past Surgical History: Reports: Hx Cardiac Catheterization - Immunizations Hx Diphtheria, Pertussis, Tetanus Vaccination: Yes Hx Pneumococcal Vaccination: 05/07/13 Review of Systems - Review of Systems Constitutional: No symptoms reported EENT: See HPI Cardiovascular: No symptoms reported Respiratory: No symptoms reported Gastrointestinal: No symptoms reported Genitourinary: No symptoms reported Female Genitourinary: No symptoms reported Musculoskeletal: No symptoms reported Skin: No symptoms reported Hematologic/Lymphatic: No symptoms reported Neurological/Psychological: See HPI Physical Exam - Vital signs Vitals: Temp Pulse Resp BP Pulse Ox 98.8 F 70 16 114/70 100 08/16/18 18:00 08/16/18 18:00 08/16/18 18:00 08/16/18 18:00 08/16/18 18:00 - Notes Notes: GENERAL: Alert, interacts well. No acute distress. HEAD: Normocephalic, atraumatic. EYES: Pupils equal, round, and reactive to light. Extraocular movements intact. ENT: Oral mucosa moist, tongue midline. Oropharynx unremarkable. Airway patent. Nasal and sinus congestion, sinuses nontender, no nasal septal hematoma, TM's intact. NECK: Full range of motion. Supple. Trachea midline. LUNGS: Clear to auscultation bilaterally, no wheezes, rales, or rhonchi. No respiratory distress. HEART: Regular rate and rhythm. No murmur ABDOMEN: Soft, non-tender. Non-distended. Bowel sounds present in all 4 quadrants. GENITOURINARY: Deferred EXTREMITIES: Moves all 4 extremities spontaneously. No edema, normal radial and dorsalis pedis pulses bilaterally. No cyanosis. BACK: no cervical, thoracic, lumbar midline tenderness. No saddle anesthesia, normal distal neurovascular exam. NEUROLOGICAL: Alert and oriented x3. Normal speech. [cranial nerves II through XII grossly intact]. PSYCH: Normal affect, normal mood. SKIN: Warm, dry, normal turgor. No rashes or lesions noted. Course - Re-evaluation Re-evalutation: I reviewed the workup initiated by triage. CBC, chemistry show mild leukopenia and thrombocytopenia. Patient is on steroids, has a history of polymyositis. This is not significantly changed from prior. Nonspecific given patient's reported symptoms. CAT scan of the head unremarkable. Physical examination unremarkable including patient's scalp, there is not does not appear to be anything new, there is no abscess, mass, or tender area. Patient is congested on examination, no ear infection, no mastoiditis, nontender sinuses, no signs of distress. Normal neurologic exam. Symptoms of vertigo and nausea are intermittent and have been going on for 2 months. Patient's congestion is ongoing and she has been previously evaluated for it. Her neurological exam is normal. She ambulates without any difficulty. Patient denying any current symptoms. Discussed with patient in detail. After discussion decision was made to discharge patient with primary care follow-up including rheumatology follow-up, patient will be started on meclizine and nausea medication along with medication for congestion. I discussed strict return precautions with patient and family member. They state understanding and agreement. - Vital Signs Vital signs: Temp Pulse Resp BP Pulse Ox 98.5 F 64 18 123/73 100 08/16/18 22:26 08/16/18 22:26 08/16/18 22:26 08/16/18 22:26 08/16/18 22:26 - Laboratory Result Diagrams: 08/16/18 19:26 08/16/18 19:26 Laboratory results interpreted by me: 08/16/18 08/16/18 19:26 19:26 WBC 3.0 L RBC 2.85 L Hct 35.8 L MCV 126 H MCH 44.5 H RDW 17.3 H Plt Count 81 L Total Bilirubin 2.1 H Direct Bilirubin 0.6 H AST 85 H Discharge - Discharge Clinical Impression: Vertigo, Nausea, Sinus congestion Condition: Stable Disposition: HOME, SELF-CARE Additional Instructions: The CAT scan of your brain is normal. Your evaluation is reassuring. Your symptoms are most suggestive of labyrinthitis, problem of the inner ear. I recommend using the nasal spray, antihistamine, and meclizine for vertigo. Follow-up with your provider for additional evaluation and management of this. Take Zofran if needed for nausea. Your platelets are slightly low at 81, this needs to be rechecked and monitored by your provider. Return if you worsen including severe headache, vomiting, numbness on one side of your body, or any other concerning or worsening symptoms. Prescriptions: Cetirizine HCl [Zyrtec 10 mg Tablet] 1 tab PO DAILY #30 tablet Fluticasone Propionate [Flonase Nasal Blacklick 50 Mcg/Blacklick 16 gm] 2 sprays NASL Q12 #1 inhaler Meclizine HCl [Antivert 25 mg Tablet] 25 mg PO TID PRN #21 tablet PRN Reason: Ondansetron [Zofran Odt 4 mg Tablet] 1 - 2 tab PO Q4H PRN #15 tab.rapdis PRN Reason: For Nausea/Vomiting Referrals: DINO MCDONALD MD [Primary Care Provider] - Follow up as needed
[2018-08-16] MEDS ORDERED: MECLIZINE HCL 25 MG TABLET PO ONE (21:32)
[2018-08-16 22:27] VITALS: BP 123/73
== END 2018-08-16 22:27 | disposition home or self-care (01) ==
LOC: ER 17:27
DX: R42 Dizziness and giddiness (principal); R11.0 Nausea; R68.89 Other general symptoms and signs; I10 Essential (primary) hypertension
CPT/HCPCS: 99284; 36415; 85025; 80053; 70450; A9270

== ENCOUNTER 2018-08-30 07:46 | Emergency (ER) | payer MEDICARE ==
--- NOTE | 2018-08-30 08:06 | ER Document Report ---
HPI - HPI Time Seen by Provider: 08/30/18 08:06 Pain Level: 1 Notes: 52-year-old female presents to the ED for complaints of sinus congestion, pain and headache similar to last week. Patient was seen in the ED last week for complaints of dizziness, CT of the head unremarkable as well as blood work. Patient has been using Flonase and meclizine without full relief. Patient states she is having yellow drainage from nose. Worse with time, nothing makes better. Patient unsure if she has seasonal allergies. Denies fevers, chills, chest pain,palpitations, shortness of breath, dyspnea, nausea, vomiting, diarrhea, abdominal pain, hematuria,blurred vision, double vision, loss of vision, speech changes, LH, dizziness, syncope, headaches, wheezing, ST, URI, neck pain, weakness, weakness/ numbness and tingling in bilateral upper or lower extremities equally or rash. - REPRODUCTIVE Reproductive: DENIES: : Past Medical History - General Information source: Patient - Social History Smoking Status: Unknown if Ever Smoked Family History: Reviewed & Not Pertinent Patient has suicidal ideation: No Patient has homicidal ideation: No - Past Medical History Cardiac Medical History: Reports: Hx Hypertension Renal/ Medical History: Denies: Hx Peritoneal Dialysis Musculoskeletal Medical History: Reports Hx Arthritis - raynauds Psychiatric Medical History: Reports: Hx Depression Past Surgical History: Reports: Hx Cardiac Catheterization - Immunizations Hx Diphtheria, Pertussis, Tetanus Vaccination: Yes Hx Pneumococcal Vaccination: 05/07/13 Vertical Provider Document - CONSTITUTIONAL Agree With Documented VS: Yes Notes: PHYSICAL EXAMINATION: GENERAL: Well-appearing, well-nourished and in no acute distress. HEAD: Atraumatic, normocephalic. EYES: Pupils equal round and reactive to light, extraocular movements intact, conjunctiva are normal. ENT: TM intact with bilateral serous effusion, no erythema. Nares boggy bilaterally, oropharynx with erythema without exudates. Tenderness to left maxillary sinus with palpation. moist mucous membranes. NECK: Normal range of motion, supple without lymphadenopathy LUNGS: Breath sounds clear to auscultation bilaterally and equal. No wheezes rales or rhonchi. HEART: Regular rate and rhythm without murmurs ABDOMEN: Soft, nontender, nondistended abdomen. No guarding, no rebound. No masses appreciated. Female : deferred Musculoskeletal: Normal range of motion, no pitting or edema. No cyanosis. NEUROLOGICAL: Cranial nerves grossly intact. Normal speech, normal gait. No rmal sensory, motor exams PSYCH: Normal mood, normal affect. SKIN: Warm, Dry, normal turgor, no rashes or lesions noted. - INFECTION CONTROL TRAVEL OUTSIDE OF THE [place] IN LAST 30 DAYS: No Course - Re-evaluation Re-evalutation: 08/30/18 08:40 Afebrile vitals stable no nondistressed, presents for persistent sinus pain, congestion, teeth pain worse when bending over for the last 2 months become progressively worse over the last week, has tried Flonase and meclizine without much improvement. Patient reports she is having yellow drainage from nose. Patient is very have an acute pectoral sinusitis. pt had full workup in ED last week with head Ct and labs, which were unremarkable. History and exam are not consistent with a retropharyngeal abscess or peritonsillar abscess. Airway is patent. No difficulty handling oral secretions. Vitals within normal limits. After performing a Medical Screening Examination, I estimate there is LOW risk for ACUTE GLAUCOMA, TEMPORAL ARTERITIS, MENINGITIS, INCRANIAL HEMORRHAGE, or ISCHEMIC STROKE thus I consider the discharge disposition reasonable. I have reevaluated this patient multiple times and no significant life threatening changes are noted. The patient and I have discussed the diagnosis and risks, and we agree with discharging home with close follow-up with the understanding that symptoms and presentations can change. We also discussed returning to the Emergency Department immediately if new or worsening symptoms occur. We have discussed the symptoms which are most concerning (e.g., changing or worsening symptoms, neck pain, ST, new numbness or weakness, vomiting, fever) that necessitate immediate return. At this time will discharge with return precautions and follow-up recommendations. Verbal discharge instructions given a the bedside and opportunity for questions given. Medication warnings reviewed. Patient is in agreement with this plan and has verbalized understanding of return precautions and the need for primary care follow-up in the next - Vital Signs Vital signs: Temp Pulse Resp BP Pulse Ox 98.6 F 97 16 107/68 100 08/30/18 07:51 08/30/18 07:51 08/30/18 07:51 08/30/18 07:51 08/30/18 07:51 Discharge - Discharge Clinical Impression: Acute bacterial sinusitis Condition: Stable Disposition: HOME, SELF-CARE Instructions: Sinusitis ([facility]) Additional Instructions: Sinusitis You have sinusitis, an infection of the sinus cavities of the face. The sinuses are air-filled chambers which open into the inside of the nose. Bacteria and pus fill a sinus, causing pain, drainage, and fever. Sinusitis is treated with antibiotics. Often, expectorants (to thin the si nus mucous) or decongestants (to reduce swelling) are prescribed as well. Healing requires seven to 10 days. Avoid chemical fumes, pollens, dusts, and smoke (especially cigarette smoke). Keep the air humidified in your bedroom and work area and take plenty of liquids by mouth. This condition can be serious if the infection spreads. If your symptoms worsen, or if you develop severe headache, high fever, stiff neck, or a rash, you must call the doctor or return for re-evaluation. Nasal rinses, blow your nose regularly, is Flonase as directed, take antibiotics with food. Wash your hands, follow-up with primary care provider within the next 24-48 hours. Return immediately for any new or worsening symptoms. Follow up with primary care provider, call tomorrow to make followup a ppointment. Prescriptions: Amox Tr/Potassium Clavulanate [Augmentin 875-125 Tablet] 1 tab PO BID #20 tablet Forms: Return to Work Referrals: DINO MCDONALD MD [EMERITUS] - Follow up tomorrow
[2018-08-30 09:27] VITALS: BP 105/65
== END 2018-08-30 08:45 | disposition home or self-care (01) ==
LOC: ER 07:46
DX: J01.90 Acute sinusitis, unspecified (principal); B96.89 Other specified bacterial agents as the cause of diseases classified elsewhere; R51 Headache; I10 Essential (primary) hypertension
CPT/HCPCS: 99283

== ENCOUNTER 2019-01-07 08:41 | Emergency (ER) | payer MEDICARE ==
--- NOTE | 2019-01-07 09:42 | ER Document Report ---
ED Medical Screen (RME) - General Chief Complaint: Pedal Edema Stated Complaint: FEET PAIN Time Seen by Provider: 01/07/19 09:39 Primary Care Provider: JEFERSON MACARIO MD [Primary Care Provider] - Follow up as needed Mode of Arrival: Ambulatory Information source: Patient Notes: Patient presents emergency department with complaints of swollen feet for the past 2 months. She has been evaluated by arthritic doctor with medication but she reports the med is not working but she did not follow back up with them. Denies all other symptoms such as shortness of breath chest pain fever vomiting diarrhea. Denies history of cardiac disease. Reports history of arthritis I have greeted and performed a rapid initial assessment of this patient. A comprehensive ED assessment and evaluation of the patient, analysis of test results and completion of the medical decision making process will be conducted by additional ED providers. Dictation of this chart was performed using voice recognition software; therefore, there may be some unintended grammatical error s. TRAVEL OUTSIDE OF THE [place] IN LAST 30 DAYS: No - Related Data Allergies/Adverse Reactions: No Known Allergies Allergy (Verified 01/07/19 08:42) Past Medical History - Past Medical History Cardiac Medical History: Reports: Hx Hypertension Renal/ Medical History: Denies: Hx Peritoneal Dialysis Musculoskeltal Medical History: Reports Hx Arthritis - raynauds Psychiatric Medical History: Reports: Hx Depression Past Surgical History: Reports: Hx Cardiac Catheterization - Immunizations Hx Diphtheria, Pertussis, Tetanus Vaccination: Yes Physical Exam - Vital signs Vitals: Temp Pulse Resp BP Pulse Ox 98.4 F 69 16 100/65 100 01/07/19 08:45 01/07/19 08:45 01/07/19 08:45 01/07/19 08:45 01/07/19 08:45 Course - Vital Signs Vital signs: Temp Pulse Resp BP Pulse Ox 97.9 F 64 18 112/69 100 01/07/19 14:51 01/07/19 14:51 01/07/19 14:51 01/07/19 14:51 01/07/19 14:51 - Laboratory Result Diagrams: 01/07/19 10:00 01/07/19 10:00 Laboratory results interpreted by me: 01/07/19 01/07/19 01/07/19 10:00 10:00 10:00 WBC 3.0 L RBC 2.77 L Hgb 11.7 L Hct 33.9 L MCV 122 H MCH 42.1 H RDW 18.4 H Plt Count 102 L Monocytes % (Manual) 14 H Abs Neuts (Manual) 1.6 L Carbon Dioxide 31 H BUN 6 L Glucose 128 H Total Bilirubin 1.9 H Direct Bilirubin 0.6 H AST 56 H Ur Leukocyte Esterase TRACE H Doctor's Discharge - Discharge Clinical Impression: Peripheral edema, Polymyositis associated with autoimmune disease Condition: Good Disposition: HOME, SELF-CARE Instructions: Edema, Peripheral ([facility]) Additional Instructions: Please follow-up with your regular doctor. It is possible that the amlodipine that you take daily can be leading to the swelling. Amlodipine has a known side effect of causing peripheral edema. If you would like to see if the amlodipine is causing this then please stop that medication and the edema usually will resolve over the course of a couple of weeks. You may benefit from wearing some compression stockings. Most pharmacies have these in the medical laboratory scientist section. Please keep your legs elevated as often as you can as this may help with some of the edema. Of note, your bilirubin levels have been elevated the last 2 blood draws that have been performed here at our hospital. Your liver function studies are mildly elevated but much improved from prior. Please discuss these findings with your doctor as well. Referrals: JEFERSON MACARIO MD [Primary Care Provider] - Follow up as needed
[2019-01-07 10:26] LABS: HEMATOCRIT 33.9 % (36.0-47.0); HEMOGLOBIN 11.7 g/dL (12.0-15.5); MEAN CORPUSCULAR HEMOGLOBIN 42.1 pg (27.0-33.4); MEAN CORPUSCULAR HGB CONC 34.5 g/dL (32.0-36.0); MEAN CORPUSCULAR VOLUME 122 fl (80-97); PLATELET COUNT 102 10^3/uL (150-450); RED BLOOD COUNT 2.77 10^6/uL (3.72-5.28); RED CELL DISTRIBUTION WIDTH 18.4 % (11.5-14.0)
[2019-01-07 10:42] LABS: APPEARANCE,URINE SLIGHTLY-CLOUDY; BILIRUBIN,URINE NEGATIVE (NEGATIVE); COLOR,URINE YELLOW; GLUCOSE, URINE NEGATIVE (NEGATIVE); KETONES,URINE NEGATIVE (NEGATIVE); LEUKOCYTE ESTERASE,URINE TRACE (NEGATIVE); NITRITE,URINE NEGATIVE (NEGATIVE); PROTEIN,URINE NEGATIVE (NEGATIVE); URINE SPECIFIC GRAVITY 1.008; UROBILINOGEN,URINE NEGATIVE mg/dL (<2.0)
[2019-01-07 10:55] LABS: ALANINE AMINOTRANSFERASE 45 U/L (9-52); ALBUMIN 3.5 g/dL (3.5-5.0); ALKALINE PHOSPHATASE 72 U/L (38-126); ANION GAP 5 (5-19); ASPARTATE AMINO TRANSFERASE 56 U/L (14-36); BILIRUBIN,DIRECT 0.6 mg/dL (0.0-0.4); BILIRUBIN,TOTAL 1.9 mg/dL (0.2-1.3); BLOOD UREA NITROGEN 6 mg/dL (7-20); CALCIUM 8.8 mg/dL (8.4-10.2); CARBON DIOXIDE 31 mmol/L (22-30); CHLORIDE 107 mmol/L (98-107); GLUCOSE 128 mg/dL (75-110); POTASSIUM 3.8 mmol/L (3.6-5.0); SODIUM 143.4 mmol/L (137-145); TOTAL PROTEIN 6.6 g/dL (6.3-8.2)
[2019-01-07 10:56] LABS: ABSOLUTE LYMPHOCYTES# (MANUAL) 0.8 10^3/uL (0.5-4.7); ABSOLUTE MONOCYTES # (MANUAL) 0.4 10^3/uL (0.1-1.4); ABSOLUTE NEUTROPHILS# (MANUAL) 1.6 10^3/uL (1.7-8.2); ANISOCYTOSIS 2+; BASOPHILS % (MANUAL) 1 % (0-2); EOSINOPHILS % (MANUAL) 6 % (0-6); LYMPHOCYTES % (MANUAL) 25 % (13-45); MONOCYTES % (MANUAL) 14 % (3-13); NUCLEATED RED BLOOD CELLS 2 /100 WBC (0); SEGMENTED NEUTROPHILS % (MAN) 54 % (42-78); TOTAL CELLS COUNTED 100
[2019-01-07 10:57] LABS: PLATELET COMMENT DECREASED
--- NOTE | 2019-01-07 12:22 | ER Document Report ---
ED General - General Chief Complaint: Pedal Edema Stated Complaint: FEET PAIN Time Seen by Provider: 01/07/19 09:39 Primary Care Provider: JEFERSON MACARIO MD [Primary Care Provider] - Follow up as needed Mode of Arrival: Ambulatory Notes: 53-year-old female to emergency department chief complaint of lower extremity edema. Did not states also that she has pain in her calves bilaterally. Patient does have significant arthritis with polymyositis. States that she has seen her doctor and they put her on some diuretics. The swelling continues to get worse. Pitting edema now up to her pre-tib area. Complaining of some mild shortness of breath. TRAVEL OUTSIDE OF THE [place] IN LAST 30 DAYS: No - HPI Onset: Other - 2 months ago Onset/Duration: Gradual Severity: Moderate - Related Data Allergies/Adverse Reactions: No Known Allergies Allergy (Verified 01/07/19 08:42) Past Medical History - General Information source: Patient - Social History Smoking Status: Never Smoker Chew tobacco use (# tins/day): No Frequency of alcohol use: None Drug Abuse: None Lives with: Family Family History: Reviewed & Not Pertinent Patient has suicidal ideation: No Patient has homicidal ideation: No - Past Medical History Cardiac Medical History: Reports: Hx Hypertension Renal/ Medical History: Denies: Hx Peritoneal Dialysis Musculoskeletal Medical History: Reports Hx Arthritis - raynauds Psychiatric Medical History: Reports: Hx Depression Past Surgical History: Reports: Hx Cardiac Catheterization - Immunizations Hx Diphtheria, Pertussis, Tetanus Vaccination: Yes Hx Pneumococcal Vaccination: 05/07/13 Review of Systems - Review of Systems Notes: Constitutional: denies: Chills, Diaphoresis, Fever, Malaise, Weakness EENT: denies: Eye discharge, Blurred vision, Tearing, Double vision, Nose congestion, Nose discharge, Throat swelling, Mouth pain Cardiovascular: denies: Palpitations, Heart racing, Orthopnea, +Dyspnea, -Chest pain Respiratory: denies: Cough, Hurts to breathe, Wheezing, _+Shortness of breath Gastrointestinal: denies: Abdominal pain, Diarrhea, Nausea, Vomiting, Black stools, bright red blood in stool Genitourinary: denies: Burning, Dysuria, Discharge, Frequency, Flank pain, Hematuria Musculoskeletal: denies: Joint pain, Joint swelling, Muscle pain, Muscle stiffness, back pain. Complaining of peripheral edema painful bilateral calfs Hematologic/Lymphatic: denies: Anemia, Easy bleeding, Easy bruising, Blood clots Neurological/Psychological: denies: Confusion, Dementia, Depression, Loss of consciousness Skin: No lesions, no masses, no skin breakdown, no abscesses Physical Exam - Vital signs Vitals: Temp Pulse Resp BP Pulse Ox 98.4 F 69 16 100/65 100 01/07/19 08:45 01/07/19 08:45 01/07/19 08:45 01/07/19 08:45 01/07/19 08:45 Interpretation: Normal - General General appearance: Appears well, Alert - HEENT Head: Normocephalic, Atraumatic Eyes: Normal Pupils: PERRL - Respiratory Respiratory status: No respiratory distress Chest status: Nontender Breath sounds: Normal Chest palpation: Normal - Cardiovascular Rhythm: Regular Heart sounds: Normal auscultation Murmur: No - Abdominal Inspection: Normal Distension: No distension Bowel sounds: Normal Tenderness: Nontender Organomegaly: No organomegaly - Back Back: Normal, Nontender - Extremities General upper extremity: Normal inspection, Nontender, Normal color, Normal ROM, Normal temperature General lower extremity: Normal inspection, Tender - Bilateral lower extremity edema with tenderness in the calves bilaterally., Edema, Normal color, Normal ROM, Normal temperature, Normal weight bearing. No: Tim's sign - Neurological Neuro grossly intact: Yes Cognition: Normal Orientation: AAOx4 Sravanthi Coma Scale Eye Opening: Spontaneous [place] Coma Scale Verbal: Oriented [place] Coma Scale Motor: Obeys Commands Sravanthi Coma Scale Total: 15 Speech: Normal Motor strength normal: LUE, RUE, LLE, RLE Sensory: Normal - Psychological Associated symptoms: Normal affect, Normal mood - Skin Skin Temperature: Warm Skin Moisture: Dry Skin Color: Normal Course - Re-evaluation Re-evalutation: 01/07/19 13:05 Laboratory 01/07/19 01/07/19 01/07/19 10:00 10:00 10:00 WBC 3.0 L RBC 2.77 L Hgb 11.7 L Hct 33.9 L MCV 122 H MCH 42.1 H MCHC 34.5 RDW 18.4 H Plt Count 102 L Total Counted 100 Seg Neutrophils % Not Reportable Seg Neuts % (Manual) 54 Lymphocytes % Not Reportable Lymphocytes % (Manual) 25 Monocytes % Not Reportable Monocytes % (Manual) 14 H Eosinophils % Not Reportable Eosinophils % (Manual) 6 Basophils % Not Reportable Basophils % (Manual) 1 Absolute Neutrophils Not Reportable Abs Neuts (Manual) 1.6 L Absolute Lymphocytes Not Reportable Abs Lymphs (Manual) 0.8 Absolute Monocytes Not Reportable Abs Monocytes (Manual) 0.4 Absolute Eosinophils Not Reportable Absolute Eos (Manual) 0.2 Absolute Basophils Not Reportable Abs Basophils (Manual) 0.0 Nucleated RBCs 2 Platelet Comment DECREASED Anisocytosis 2+ Macrocytosis 4+ Sodium 143.4 Potassium 3.8 Chloride 107 Carbon Dioxide 31 H Anion Gap 5 BUN 6 L Creatinine 0.62 Est GFR ( Amer) > 60 Est GFR (Non-Af Amer) > 60 Glucose 128 H Calcium 8.8 Total Bilirubin 1.9 H Direct Bilirubin 0.6 H Neonat Total Bilirubin Not Reportable Neonat Direct Bilirubin Not Reportable Neonat Indirect Bili Not Reportable AST 56 H ALT 45 Alkaline Phosphatase 72 Total Protein 6.6 Albumin 3.5 Urine Color YELLOW Urine Appearance SLIGHTLY-CLOUDY Urine pH 7.0 Ur Specific [place] 1.008 Urine Protein NEGATIVE Urine Glucose (UA) NEGATIVE Urine Ketones NEGATIVE Urine Blood NEGATIVE Urine Nitrite NEGATIVE Urine Bilirubin NEGATIVE Urine Urobilinogen NEGATIVE Ur Leukocyte Esterase TRACE H Urine WBC (Auto) 5 Urine RBC (Auto) 1 Squamous Epi Cells Auto 6 Urine Mucus (Auto) RARE Urine Ascorbic Acid NEGATIVE Monotest 01/07/19 10:00 WBC RBC Hgb Hct MCV MCH MCHC RDW Plt Count Total Counted Seg Neutrophils % Seg Neuts % (Manual) Lymphocytes % Lymphocytes % (Manual) Monocytes % Monocytes % (Manual) Eosinophils % Eosinophils % (Manual) Basophils % Basophils % (Manual) Absolute Neutrophils Abs Neuts (Manual) Absolute Lymphocytes Abs Lymphs (Manual) Absolute Monocytes Abs Monocytes (Manual) Absolute Eosinophils Absolute Eos (Manual) Absolute Basophils Abs Basophils (Manual) Nucleated RBCs Platelet Comment Anisocytosis Macrocytosis Sodium Potassium Chloride Carbon Dioxide Anion Gap BUN Creatinine Est GFR ( Amer) Est GFR (Non-Af Amer) Glucose Calcium Total Bilirubin Direct Bilirubin Neonat Total Bilirubin Neonat Direct Bilirubin Neonat Indirect Bili AST ALT Alkaline Phosphatase Total Protein Albumin Urine Color Urine Appearance Urine pH Ur Specific [place] Urine Protein Urine Glucose (UA) Urine Ketones Urine Blood Urine Nitrite Urine Bilirubin Urine Urobilinogen Ur Leukocyte Esterase Urine WBC (Auto) Urine RBC (Auto) Squamous Epi Cells Auto Urine Mucus (Auto) Urine Ascorbic Acid Monotest NEGATIVE 01/07/19 13:06 With painful swollen calves bilaterally. Has slightly elevated bilirubin but prior labs did show bilirubin higher than this. Has some chronic elevated liver functions. At this time I am ordering a BNP, EKG and a chest x-ray for review. Will order ultrasound the bilateral lower extremities to rule out DVT. 01/07/19 14:19 BMP is normal. EKG normal sinus rhythm no signs of ischemia. Chest x-ray unremarkable. No signs of failure. 01/07/19 14:20 Ultrasound pending. If ultrasound is unremarkable then more likely patient can be discharged. More than likely this is due to her underlying rheumatological issues. If the ultrasounds are negative for DVT then will DC in stable condition and urged close follow-up with her outpatient primary care doctors. Will encourage elevating her feet at night and she may even benefit from wearing some compression stockings. 01/07/19 14:38 On further review of her medication even though patient said she is not on a calcium channel brooke she is in fact on one year and she is taking amlodipine which leads to chronic edema - Vital Signs Vital signs: Temp Pulse Resp BP Pulse Ox 98.4 F 69 16 100/65 100 01/07/19 08:45 01/07/19 08:45 01/07/19 08:45 01/07/19 08:45 01/07/19 08:45 - Laboratory Result Diagrams: 01/07/19 10:00 01/07/19 10:00 Laboratory results interpreted by me: 01/07/19 01/07/19 01/07/19 10:00 10:00 10:00 WBC 3.0 L RBC 2.77 L Hgb 11.7 L Hct 33.9 L MCV 122 H MCH 42.1 H RDW 18.4 H Plt Count 102 L Monocytes % (Manual) 14 H Abs Neuts (Manual) 1.6 L Carbon Dioxide 31 H BUN 6 L Glucose 128 H Total Bilirubin 1.9 H Direct Bilirubin 0.6 H AST 56 H Ur Leukocyte Esterase TRACE H - EKG Interpretation by Co EKG shows normal: Sinus rhythm, [place], Intervals, QRS Complexes, ST-T Waves Discharge - Discharge Clinical Impression: Peripheral edema, Polymyositis associated with autoimmune disease Condition: Good Disposition: HOME, SELF-CARE Instructions: Edema, Peripheral ([facility]) Additional Instructions: Please follow-up with your regular doctor. It is possible that the amlodipine that you take daily can be leading to the swelling. Amlodipine has a known side effect of causing peripheral edema. If you would like to see if the amlodipine is causing this then please stop that medication and the edema usually will resolve over the course of a couple of weeks. You may benefit from wearing some compression stockings. Most pharmacies have these in the medical i d sales section. Please keep your legs elevated as often as you can as this may help with some of the edema. Of note, your bilirubin levels have been elevated the last 2 blood draws that have been performed here at our hospital. Your liver function studies are mildly elevated but much improved from prior. Please discuss these findings with your doctor as well. Referrals: JEFERSON MACARIO MD [Primary Care Provider] - Follow up as needed
--- NOTE | 2019-01-07 13:34 | RADIOLOGY REPORT (SQ) ---
EXAM DESCRIPTION: CHEST 2 VIEWS COMPLETED DATE/TIME: 01/07/2019 1:22 pm REASON FOR STUDY: sob COMPARISON: 11/21/2015 EXAM PARAMETERS: NUMBER OF VIEWS: two views TECHNIQUE: Digital Frontal and Lateral radiographic views of the chest acquired. RADIATION DOSE: NA LIMITATIONS: none FINDINGS: LUNGS AND PLEURA: No opacities, masses or pneumothorax. No pleural effusion. MEDIASTINUM AND HILAR STRUCTURES: No masses or contour abnormalities. HEART AND VASCULAR STRUCTURES: Heart normal size. No evidence for failure. BONES: No acute findings. HARDWARE: None in the chest. OTHER: No other significant finding. IMPRESSION: NO ACUTE RADIOGRAPHIC FINDING IN THE CHEST. TECHNICAL DOCUMENTATION: JOB ID: [id number] [employer]- All Rights Reserved Reading location - IP/workstation name: [email or web address]
[2019-01-07 14:55] VITALS: BP 112/69
--- NOTE | 2019-01-07 19:26 | EKG REPORT ---
SEVERITY:- NORMAL ECG - SINUS RHYTHM : Confirmed by: Justus Maldonado MD 07-Jan-2019 19:24:55
--- NOTE | 2019-01-08 10:21 | XCELERA REPORT ---
[address] [facility] [id number] Lower Extremity Venous Evaluation Procedure: Color flow and duplex imaging bilaterally of the veins of the lower extremities as well as the Common Femoral veins. Right Sided Venous Evaluation Normal vessel filling wall to wall, compression and augmentation as well as Colour flow down to the infrageniculate veins. Left Sided Venous Evaluation Normal vessel filling wall to wall, compression and augmentation as well as Colour flow down to the infrageniculate veins. Interpretation Summary No duplex evidence of DVT or obstruction in the bilateral lower extremities. Name: BO GONZALEZ Age: 53 yrs Gender: Female : 1965 Patient Status: Emergency Patient Location: ER Study Date: 01/07/2019 02:11 PM Reason For Study: Painful calves and edema bilateral lower extremity Ordering Physician: DENISE MCMAHAN Performed By: Pawel Wong : DENISE MCMAHAN > Azeem Cuellar
== END 2019-01-07 14:56 | disposition home or self-care (01) ==
LOC: ER 08:41
DX: R60.0 Localized edema (principal); Z79.899 Other long term (current) drug therapy; D89.89 Other specified disorders involving the immune mechanism, not elsewhere classified; M33.20 Polymyositis, organ involvement unspecified; M19.90 Unspecified osteoarthritis, unspecified site; R06.02 Shortness of breath; M79.662 Pain in left lower leg; M79.661 Pain in right lower leg; I10 Essential (primary) hypertension
CPT/HCPCS: 36415; 71046; 80053; 81001; 83880; 84484; 85025; 86308; 93005; 93010; 93970; 99284

== ENCOUNTER 2019-03-07 12:18 | Emergency (ER) | payer MEDICARE ==
--- NOTE | 2019-03-07 12:47 | ER Document Report ---
ED Medical Screen (RME) - General Chief Complaint: General Weakness Stated Complaint: WEAKNESS IN BOTH LEGS Time Seen by Provider: 03/07/19 12:39 Primary Care Provider: JEFERSON MACARIO MD [Primary Care Provider] - Follow up as needed TRAVEL OUTSIDE OF THE [place] IN LAST 30 DAYS: No - HPI Notes: 03/07/19 12:45 Patient is a 53-year-old female with a history of polymyositis, peripheral edema, hypertension who presents complaining of increased soreness from her hips down the lateral thighs bilaterally over the past 1 to 2 weeks as well as feeling fatigued. Patient states that she does have issues with shortness of breath as well primarily with exertion. Patient states that her shortness of breath is not new to her. Patient states that she has been seen for this issue in her legs before as well, but is coming in because she is starting to feel fatigued. Denies HIGHTOWER, fever, neck pain, URI, CP, Abd pain, dysuria, back pain, or rash. I have treated and performed a rapid initial assessment of this patient. A comprehensive ED assessment and evaluation of the patient, analysis of test results and completion of medical decision making process will be conducted by additional ED providers. PHYSICAL EXAMINATION: GENERAL: Well-appearing, well-nourished and in no acute distress. A&Ox4. Answers questions appropriately. LUNGS: Breath sounds clear to auscultation bilaterally and equal. No wheezes rales or rhonchi. HEART: Regular rate and rhythm without murmurs, rubs, gallops. Extremities: 2+ pitting edema b/l LE's. No calf tenderness. NEUROLOGICAL: Normal speech, normal gait. PSYCH: Normal mood, normal affect. - Related Data Allergies/Adverse Reactions: No Known Allergies Allergy (Verified 03/07/19 12:21) Past Medical History - Social History Chew tobacco use (# tins/day): No Frequency of alcohol use: None Drug Abuse: None - Past Medical History Cardiac Medical History: Reports: Hx Hypertension Renal/ Medical History: Denies: Hx Peritoneal Dialysis Musculoskeltal Medical History: Reports Hx Arthritis - raynauds Psychiatric Medical History: Reports: Hx Depression Past Surgical History: Reports: Hx Cardiac Catheterization - Immunizations Hx Diphtheria, Pertussis, Tetanus Vaccination: Yes Physical Exam - Vital signs Vitals: Temp Pulse Resp BP Pulse Ox 98.7 F 76 16 111/71 95 03/07/19 12:28 03/07/19 12:28 03/07/19 12:28 03/07/19 12:28 03/07/19 12:28 Course - Vital Signs Vital signs: Temp Pulse Resp BP Pulse Ox 98.7 F 76 16 111/71 95 03/07/19 12:28 03/07/19 12:28 03/07/19 12:28 03/07/19 12:28 03/07/19 12:28 Doctor's Discharge - Discharge Referrals: JEFERSON MACARIO MD [Primary Care Provider] - Follow up as needed
[2019-03-07] MEDS ORDERED: KETOROLAC TROMETHAMINE 60 MG/2 ML SDV IM ONE (12:48)
[2019-03-07] MEDS ORDERED: FUROSEMIDE 20 MG TABLET PO ONE (12:48)
[2019-03-07 13:23] LABS: APPEARANCE,URINE SLIGHTLY-CLOUDY; BILIRUBIN,URINE SMALL (NEGATIVE); COLOR,URINE AMBER; GLUCOSE, URINE NEGATIVE (NEGATIVE); HEMATOCRIT 26.7 % (36.0-47.0); HEMOGLOBIN 9.4 g/dL (12.0-15.5); KETONES,URINE TRACE mg/dL (NEGATIVE); LEUKOCYTE ESTERASE,URINE SMALL (NEGATIVE); MEAN CORPUSCULAR HEMOGLOBIN 45.8 pg (27.0-33.4); MEAN CORPUSCULAR HGB CONC 35.1 g/dL (32.0-36.0); MEAN CORPUSCULAR VOLUME 130 fl (80-97); NITRITE,URINE NEGATIVE (NEGATIVE); PROTEIN,URINE NEGATIVE (NEGATIVE); RED BLOOD COUNT 2.05 10^6/uL (3.72-5.28); RED CELL DISTRIBUTION WIDTH 21.4 % (11.5-14.0); WHITE BLOOD COUNT 3.1 10^3/uL (4.0-10.5)
--- NOTE | 2019-03-07 13:26 | RADIOLOGY REPORT (SQ) ---
EXAM DESCRIPTION: CHEST 2 VIEWS COMPLETED DATE/TIME: 03/07/2019 1:14 pm REASON FOR STUDY: LE edema, PASCUAL COMPARISON: 01/07/2019 EXAM PARAMETERS: NUMBER OF VIEWS: two views TECHNIQUE: Digital Frontal and Lateral radiographic views of the chest acquired. RADIATION DOSE: NA LIMITATIONS: none FINDINGS: LUNGS AND PLEURA: No opacities, masses or pneumothorax. No pleural effusion. MEDIASTINUM AND HILAR STRUCTURES: No masses or contour abnormalities. HEART AND VASCULAR STRUCTURES: Heart normal size. No evidence for failure. BONES: No acute findings. HARDWARE: None in the chest. OTHER: No other significant finding. IMPRESSION: NO ACUTE RADIOGRAPHIC FINDING IN THE CHEST. TECHNICAL DOCUMENTATION: JOB ID: [id number] [employer]- All Rights Reserved Reading location - IP/workstation name: [email or web address]
[2019-03-07 13:41] LABS: ALANINE AMINOTRANSFERASE 37 U/L (9-52); ALKALINE PHOSPHATASE 44 U/L (38-126); ANION GAP 5 (5-19); ASPARTATE AMINO TRANSFERASE 72 U/L (14-36); BILIRUBIN,DIRECT 1.6 mg/dL (0.0-0.4); BILIRUBIN,TOTAL 5.7 mg/dL (0.2-1.3); BLOOD UREA NITROGEN 11 mg/dL (7-20); CALCIUM 8.5 mg/dL (8.4-10.2); CARBON DIOXIDE 28 mmol/L (22-30); CHLORIDE 106 mmol/L (98-107); GLUCOSE 100 mg/dL (75-110); POTASSIUM 4.2 mmol/L (3.6-5.0); TOTAL PROTEIN 6.2 g/dL (6.3-8.2)
[2019-03-07 13:45] LABS: PLATELET COUNT 73 10^3/uL (150-450)
[2019-03-07 13:48] LABS: ABSOLUTE LYMPHOCYTES# (MANUAL) 0.5 10^3/uL (0.5-4.7); ABSOLUTE MONOCYTES # (MANUAL) 0.1 10^3/uL (0.1-1.4); BASOPHILS % (MANUAL) 0 % (0-2); EOSINOPHILS % (MANUAL) 1 % (0-6); LYMPHOCYTES % (MANUAL) 17 % (13-45); MONOCYTES % (MANUAL) 3 % (3-13); SEGMENTED NEUTROPHILS % (MAN) 79 % (42-78); TOTAL CELLS COUNTED 100
[2019-03-07 13:50] LABS: ANISOCYTOSIS 3+; HOWELL-JOLLY BODIES PRESENT; OVALOCYTES 1+; POIKILOCYTOSIS 2+; SCHISTOCYTES 1+; TEAR DROP CELLS 1+
[2019-03-07 13:51] LABS: PLATELET COMMENT DECREASED
[2019-03-07] MEDS ORDERED: FOLIC ACID 1 MG TABLET PO ONE (15:14)
[2019-03-07 15:19] LABS: INTERNATIONAL RATION (INR) 2.06; PROTHROMBIN TIME 23.5 SEC (11.4-15.4)
[2019-03-07 15:20] LABS: PARTIAL THROMBOPLASTIN TIME 52.2 SEC (23.5-35.8)
[2019-03-07 16:32] LABS: FOLATE 3.53 ng/mL (>2.76)
--- NOTE | 2019-03-07 17:01 | ER Document Report ---
ED General - General Chief Complaint: General Weakness Stated Complaint: WEAKNESS IN BOTH LEGS Time Seen by Provider: 03/07/19 12:39 Primary Care Provider: NIURKA CARDONA MD [ACTIVE STAFF] - Follow up in 3-5 days (CALL OFFICE ON MONDAY ) Notes: Patient is a 53-year-old female with polymyositis that presents to the emergency department for chief complaint of generalized weakness and fatigue. Patient states that her legs have been aching more recently, and she is had decreased exercise capacity, states she gets short of breath and weak after walking 10 to 20 feet and have to take a break. She is on multiple medications including prednisone, azathioprine and methotrexate for her polymyositis. She states she is not been taking her methotrexate the way she was initially told, she is taking it once daily as opposed to all at once once weekly, she also reports after questioning that she is not taking her folic acid that she is supposed to be taken has not done so for several months. She has not noticed any numbness, weakness or tingling in any of her hands or feet, but she does state she is taking a B12 supplement. She denies having any chest pain, shortness of breath, nausea, vomiting or abdominal pain. She currently rates her pain as a 4 out of 10 describes as an aching sensation mainly in her lower extremities distal to the knee. Past Medical History: Polymyositis, hypertension Past Surgical History: Denies recent or pertinent surgical history Social History: Former smoker, remotely, denies alcohol or drug use. Family History: Reviewed and noncontributory for presenting illness Allergies: Reviewed, see documented allergy list. REVIEW OF SYSTEMS: Other than noted above, the 12 point review of systems was reviewed with the patient and were negative, all pertinent findings are included in the HPI. PHYSICAL EXAMINATION: Vital signs reviewed, nursing noted reviewed. GENERAL: Well-appearing, well-nourished and in no acute distress. HEAD: Atraumatic, normocephalic. EYES: Eyes appear normal, extraocular movements intact, sclera anicteric, conjunctiva are normal. ENT: nares patent, oropharynx clear without exudates. Moist mucous membranes. NECK: Normal range of motion, supple without lymphadenopathy LUNGS: Breath sounds clear to auscultation bilaterally and equal. No wheezes rales or rhonchi. HEART: Regular rate and rhythm without murmurs ABDOMEN: Soft, nontender, normoactive bowel sounds. No rebound, guarding, or rigidity. No masses appreciated. EXTREMITIES: Bilateral lower extremity pitting edema, 2+, to the proximal tibias, equal bilaterally, no erythema, no calf tenderness. Distal pulses equal bilaterally. Muscular motor strength and range of motion intact distally in all extremities. NEUROLOGICAL: No focal neurological deficits. Moves all extremities spontaneously Motor and sensory grossly intact on exam. PSYCH: Normal mood, normal affect. SKIN: Warm, Dry, normal turgor, no rashes or lesions noted on exposed skin TRAVEL OUTSIDE OF THE [place] IN LAST 30 DAYS: No - Related Data Allergies/Adverse Reactions: No Known Allergies Allergy (Verified 03/07/19 12:21) Past Medical History - Social History Smoking Status: Former Smoker Chew tobacco use (# tins/day): No Frequency of alcohol use: None Drug Abuse: None Family History: Reviewed & Not Pertinent Patient has suicidal ideation: No Patient has homicidal ideation: No - Past Medical History Cardiac Medical History: Reports: Hx Hypertension Renal/ Medical History: Denies: Hx Peritoneal Dialysis Musculoskeletal Medical History: Reports Hx Arthritis - raynauds Psychiatric Medical History: Reports: Hx Depression Past Surgical History: Reports: Hx Cardiac Catheterization - Immunizations Hx Diphtheria, Pertussis, Tetanus Vaccination: Yes Hx Pneumococcal Vaccination: 05/07/13 Physical Exam - Vital signs Vitals: Temp Pulse Resp BP Pulse Ox 98.7 F 76 16 111/71 95 03/07/19 12:28 03/07/19 12:28 03/07/19 12:28 03/07/19 12:28 03/07/19 12:28 Course - Re-evaluation Re-evalutation: Patient seen and examined vital signs reviewed. Laboratory data and/or imaging were ordered as appropriate for the patient's presenting symptoms and complaint, with consideration of any critical or life threatening conditions that may be associated with their obtained history and exam as noted above. Patient was treated with folic acid Results were reviewed when available and demonstrated hemolytic anemia, and macrocytic anemia, patient's lactate dehydrogenase is elevated, with an increase anemia from prior, with an MCV of 130, and elevated total bilirubin consistent with a hemolytic anemia, likely due to the methotrexate the patient is taking and lack of taking folic acid. Patient aside from fatigue is essentially asymptomatic, she did not demonstrate jaundice on my exam, her total protein and albumin were low, and her INR was elevated as well, which seems to be consistent with methotrexate toxicity, I advised the patient to discontinue taking the methotrexate, and start taking folic acid, I did call the patient's economic consultant office, they advised her to take the folic acid, and to follow-up on Monday in the office, was unable to get a hold of her physician, because they are out of the office at that point. I do not feel the patient need to be admitted for this at this time, only that she needs to discontinue taking her methotrexate at this point, and to start folic acid, I entertain starting the patient on leucovorin, but felt at this point being started on folic acid should improve her overall symptomatology, as well as laboratory abnormalities, advised strongly that she needs to follow-up with them, left a message with her physician, and for her to be seen on Monday, to have repeat blood work done, and to discuss going forward her rheumatologic medication regimen. I discussed with her at length that she was not taking her methotrexate properly either, by taking it once daily, and discussed with her that she needs to follow the regimen as prescribed, and she absolutely needs to take folic acid if she is restarted on methotrexate by her economic consultant. Patient understood this plan of care and will be discharged home she was advised though if she has any worsening symptoms, increased fatigue, or has any signs of bleeding that she needs to return to the emergency department sooner. Evaluation most consistent with macrocytic anemia, methotrexate toxicity. Results were discussed with the patient at this point, after careful consideration I feel that that patient can be discharged from the emergency department, the patient was educated treatments and reasons to return to the emergency department based on their presumed diagnosis as noted above, they were advised to followup with a primary care physician in 2-3 days. Patient was agreeable to plan of care. *Note is created using voice recognition software and may contain spelling, syntax or grammatical errors. Laboratory 03/07/19 03/07/19 03/07/19 12:55 12:55 12:55 WBC 3.1 L RBC 2.05 L Hgb 9.4 L Hct 26.7 L MCV 130 H MCH 45.8 H MCHC 35.1 RDW 21.4 H Plt Count 73 L Total Counted 100 Seg Neutrophils % Not Reportable Seg Neuts % (Manual) 79 H Lymphocytes % Not Reportable Lymphocytes % (Manual) 17 Monocytes % Not Reportable Monocytes % (Manual) 3 Eosinophils % Not Reportable Eosinophils % (Manual) 1 Basophils % Not Reportable Basophils % (Manual) 0 Absolute Neutrophils Not Reportable Abs Neuts (Manual) 2.4 Absolute Lymphocytes Not Reportable Abs Lymphs (Manual) 0.5 Absolute Monocytes Not Reportable Abs Monocytes (Manual) 0.1 Absolute Eosinophils Not Reportable Absolute Eos (Manual) 0.0 Absolute Basophils Not Reportable Abs Basophils (Manual) 0.0 Platelet Comment DECREASED Poikilocytosis 2+ Basophilic Stippling PRESENT Anisocytosis 3+ Macrocytosis 4+ Tear Drop Cells 1+ Ovalocytes 1+ [place] Bodies PRESENT Schistocytes 1+ PT INR APTT Sodium 139.3 Potassium 4.2 Chloride 106 Carbon Dioxide 28 Anion Gap 5 BUN 11 Creatinine 0.57 Est GFR ( Amer) > 60 Est GFR (Non-Af Amer) > 60 Glucose 100 Calcium 8.5 Total Bilirubin 5.7 H Direct Bilirubin 1.6 H Neonat Total Bilirubin Not Reportable Neonat Direct Bilirubin Not Reportable Neonat Indirect Bili Not Reportable AST 72 H ALT 37 Alkaline Phosphatase 44 Lactate Dehydrogenase NT-Pro-B Natriuret Pep 145 Total Protein 6.2 L Albumin 3.0 L Vitamin B12 Folate Urine Color Urine Appearance Urine pH Ur Specific [place] Urine Protein Urine Glucose (UA) Urine Ketones Urine Blood Urine Nitrite Urine Bilirubin Urine Urobilinogen Ur Leukocyte Esterase Urine WBC (Auto) Urine RBC (Auto) Urine Bacteria (Auto) Squamous Epi Cells Auto Urine Mucus (Auto) Urine Ascorbic Acid 03/07/19 03/07/19 03/07/19 12:55 12:55 14:59 WBC RBC Hgb Hct MCV MCH MCHC RDW Plt Count Total Counted Seg Neutrophils % Seg Neuts % (Manual) Lymphocytes % Lymphocytes % (Manual) Monocytes % Monocytes % (Manual) Eosinophils % Eosinophils % (Manual) Basophils % Basophils % (Manual) Absolute Neutrophils Abs Neuts (Manual) Absolute Lymphocytes Abs Lymphs (Manual) Absolute Monocytes Abs Monocytes (Manual) Absolute Eosinophils Absolute Eos (Manual) Absolute Basophils Abs Basophils (Manual) Platelet Comment Poikilocytosis Basophilic Stippling Anisocytosis Macrocytosis Tear Drop Cells Ovalocytes [place] Bodies Schistocytes PT 23.5 H INR 2.06 APTT 52.2 H Sodium Potassium Chloride Carbon Dioxide Anion Gap BUN Creatinine Est GFR ( Amer) Est GFR (Non-Af Amer) Glucose Calcium Total Bilirubin Direct Bilirubin Neonat Total Bilirubin Neonat Direct Bilirubin Neonat Indirect Bili AST ALT Alkaline Phosphatase Lactate Dehydrogenase 498 H NT-Pro-B Natriuret Pep Total Protein Albumin Vitamin B12 930.0 Folate 3.53 Urine Color CHERYL Urine Appearance SLIGHTLY-CLOUDY Urine pH 6.0 Ur Specific [place] 1.020 Urine Protein NEGATIVE Urine Glucose (UA) NEGATIVE Urine Ketones TRACE H Urine Blood NEGATIVE Urine Nitrite NEGATIVE Urine Bilirubin SMALL H Urine Urobilinogen 4.0 H Ur Leukocyte Esterase SMALL H Urine WBC (Auto) 13 Urine RBC (Auto) 2 Urine Bacteria (Auto) TRACE Squamous Epi Cells Auto 9 Urine Mucus (Auto) MOD Urine Ascorbic Acid NEGATIVE - Vital Signs Vital signs: Temp Pulse Resp BP Pulse Ox 98.2 F 62 16 105/69 100 03/07/19 17:10 03/07/19 17:10 03/07/19 17:10 03/07/19 17:10 03/07/19 17:10 - Laboratory Result Diagrams: 03/07/19 12:55 03/07/19 12:55 Laboratory results interpreted by me: 03/07/19 03/07/19 03/07/19 12:55 12:55 12:55 WBC 3.1 L RBC 2.05 L Hgb 9.4 L Hct 26.7 L MCV 130 H MCH 45.8 H RDW 21.4 H Plt Count 73 L Seg Neuts % (Manual) 79 H PT APTT Total Bilirubin 5.7 H Direct Bilirubin 1.6 H AST 72 H Lactate Dehydrogenase Total Protein 6.2 L Albumin 3.0 L Urine Ketones TRACE H Urine Bilirubin SMALL H Urine Urobilinogen 4.0 H Ur Leukocyte Esterase SMALL H 03/07/19 03/07/19 12:55 14:59 WBC RBC Hgb Hct MCV MCH RDW Plt Count Seg Neuts % (Manual) PT 23.5 H APTT 52.2 H Total Bilirubin Direct Bilirubin AST Lactate Dehydrogenase 498 H Total Protein Albumin Urine Ketones Urine Bilirubin Urine Urobilinogen Ur Leukocyte Esterase Discharge - Discharge 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 Cardona on Monday, please start taking the folic acid, once daily as prescribed, I would discontinue taking her methotrexate, until further directed by Dr. Cardona. If you have any further concerns, do not hesitate to return to the emergency department sooner. Prescriptions: RX: Folic Acid [Folvite 1 mg Tablet] 1 mg PO DAILY #30 tablet Forms: Parent Work Note Referrals: NIURKA CARDONA MD [ACTIVE STAFF] - Follow up in 3-5 days (CALL OFFICE ON MONDAY )
[2019-03-07 17:16] VITALS: BP 105/69
== END 2019-03-07 17:19 | disposition home or self-care (01) ==
LOC: ER 12:18
DX: M33.20 Polymyositis, organ involvement unspecified (principal); T45.1X1A Poisoning by antineoplastic and immunosuppressive drugs, accidental (unintentional), initial encounter; R53.1 Weakness; D64.9 Anemia, unspecified; R53.83 Other fatigue; X58.XXXA Exposure to other specified factors, initial encounter; I10 Essential (primary) hypertension
CPT/HCPCS: 99283; 96372; 36415; 82607; 82746; 83010; 83615; 85025; 85610; 85730; 80053; 81001; 83880; 71046; J1885; A9270 ×2

== ENCOUNTER 2019-03-21 09:21 | Emergency (ER) | payer MEDICARE ==
--- NOTE | 2019-03-21 10:11 | RADIOLOGY REPORT (SQ) ---
EXAM DESCRIPTION: CHEST SINGLE VIEW COMPLETED DATE/TIME: 03/21/2019 9:58 am REASON FOR STUDY: bed 19 db COMPARISON: None. EXAM PARAMETERS: NUMBER OF VIEWS: One view. TECHNIQUE: Single frontal radiographic view of the chest acquired. RADIATION DOSE: NA LIMITATIONS: None. FINDINGS: LUNGS AND PLEURA: Minimal faint focal density right base adjacent hemidiaphragm. May repr esent summation density and exaggerated by poor inspiratory effort. Minimal subsegmental atelectasis left base. Lungs otherwise clear. MEDIASTINUM AND HILAR STRUCTURES: No masses. Contour normal. HEART AND VASCULAR STRUCTURES: Heart normal in size. Normal vasculature. BONES: No acute findings. HARDWARE: None in the chest. OTHER: No other significant finding. IMPRESSION: Questionable minimal focal density right base that may reflect summation density exagger ated by poor inspiratory effort. Repeat PA in deep inspiration should be considered when the patient is clinically stable. Minimal subsegmental atelectasis left base. TECHNICAL DOCUMENTATION: JOB ID: [id number] [employer]- All Rights Reserved Reading location - IP/workstation name: [email or web address]
[2019-03-21 10:27] LABS: HEMATOCRIT 22.3 % (36.0-47.0); MEAN CORPUSCULAR HEMOGLOBIN 48.3 pg (27.0-33.4); MEAN CORPUSCULAR HGB CONC 36.1 g/dL (32.0-36.0); PLATELET COUNT 102 10^3/uL (150-450); RED BLOOD COUNT 1.67 10^6/uL (3.72-5.28); RED CELL DISTRIBUTION WIDTH 20.8 % (11.5-14.0)
[2019-03-21] MEDS ORDERED: NORMAL SALINE 500 ML IV ONE (10:30)
[2019-03-21] MEDS ORDERED: ACETAMINOPHEN 325 MG TABLET PO ONE ×2 (10:31→12:59)
--- NOTE | 2019-03-21 10:33 | ER Document Report ---
ED Medical Screen (RME) - General Chief Complaint: Shortness Of Breath Stated Complaint: COUGH,CONGESTION Time Seen by Provider: 03/21/19 10:25 Primary Care Provider: JEFERSON MACARIO MD [Primary Care Provider] - Follow up as needed Mode of Arrival: Ambulatory Information source: Patient Notes: This is a 53-year-old patient presenting to the emergency department chief complaint of shortness of breath, cough and congestion that has been going on for approximately 1 week. She reports associated fevers. She also complains of bilateral leg swelling. She denies any history of CHF. She does report the cough is productive, she states there is green sputum at times. She states she feels weak and worn down. Exam: Lung sounds are clear and equal but diminished bilaterally. Bilateral lower extremity edema present. Patient alert, answering all questions appropriately and appears nontoxic. Patient already had labs ordered by nursing protocol at the time of my evaluation. I will add on a BNP due to the lower extremity swelling. She is febrile at this time and was not at the time of arrival, Tylenol has been ordered. I have greeted and performed a rapid initial assessment of this patient. A comprehensive ED assessment and evaluation of the patient, analysis of test results and completion of the medical decision making process will be conducted by additional ED providers. I have specifically instructed the patient or family members with the patient to immediately return to any nursing staff should anything change in the patient's condition or with their chief complaint. This medical record was dictated with voice recognizing software. There may be grammatical, syntax errors that are unintended. TRAVEL OUTSIDE OF THE [place] IN LAST 30 DAYS: No - Related Data Allergies/Adverse Reactions: No Known Allergies Allergy (Verified 03/07/19 12:21) Past Medical History - Past Medical History Cardiac Medical History: Reports: Hx Hypertension Renal/ Medical History: Denies: Hx Peritoneal Dialysis Musculoskeltal Medical History: Reports Hx Arthritis - raynauds Psychiatric Medical History: Reports: Hx Depression Past Surgical History: Reports: Hx Cardiac Catheterization - Immunizations Hx Diphtheria, Pertussis, Tetanus Vaccination: Yes Physical Exam - Vital signs Vitals: Temp Pulse Resp BP 99.4 F 115 H 20 126/65 H 03/21/19 09:27 03/21/19 09:27 03/21/19 09:27 03/21/19 09:27 Course - Vital Signs Vital signs: Temp Pulse Resp BP Pulse Ox 100.1 F 115 H 19 114/102 H 95 03/21/19 10:30 03/21/19 09:27 03/21/19 10:00 03/21/19 10:01 03/21/19 09:48 - Laboratory Result Diagrams: 03/21/19 10:05 03/21/19 10:05 Laboratory results interpreted by me: 03/21/19 10:05 Potassium 3.5 L Calcium 8.2 L Total Bilirubin 3.8 H Direct Bilirubin 1.2 H AST 52 H Creatine Kinase 568 H Total Protein 5.9 L Albumin 2.9 L Doctor's Discharge - Discharge Referrals: JEFERSON MACARIO MD [Primary Care Provider] - Follow up as needed
[2019-03-21 10:43] LABS: ALBUMIN 2.9 g/dL (3.5-5.0); ALKALINE PHOSPHATASE 54 U/L (38-126); ANION GAP 9 (5-19); ASPARTATE AMINO TRANSFERASE 52 U/L (14-36); BILIRUBIN,DIRECT 1.2 mg/dL (0.0-0.4); BILIRUBIN,TOTAL 3.8 mg/dL (0.2-1.3); BLOOD UREA NITROGEN 8 mg/dL (7-20); CALCIUM 8.2 mg/dL (8.4-10.2); CARBON DIOXIDE 26 mmol/L (22-30); CHLORIDE 103 mmol/L (98-107); CREATINE KINASE 568 U/L (30-135); GLUCOSE 105 mg/dL (75-110); POTASSIUM 3.5 mmol/L (3.6-5.0); TOTAL PROTEIN 5.9 g/dL (6.3-8.2)
[2019-03-21 10:50] LABS: CREATINE KINASE MB 1.52 ng/mL (<4.55); WHITE BLOOD COUNT 1.4 10^3/uL (4.0-10.5)
[2019-03-21 10:56] LABS: ABSOLUTE LYMPHOCYTES# (MANUAL) 0.4 10^3/uL (0.5-4.7); BASOPHILS % (MANUAL) 2 % (0-2); EOSINOPHILS % (MANUAL) 2 % (0-6); LYMPHOCYTES % (MANUAL) 30 % (13-45); MONOCYTES % (MANUAL) 0 % (3-13); NUCLEATED RED BLOOD CELLS 2 /100 WBC (0); SEGMENTED NEUTROPHILS % (MAN) 66 % (42-78); TOTAL CELLS COUNTED 50
--- NOTE | 2019-03-21 10:59 | EKG REPORT ---
SEVERITY:- BORDERLINE ECG - SINUS TACHYCARDIA BORDERLINE INFERIOR Q WAVES : Confirmed by: Meaghan Swanson 21-Mar-2019 10:57:44
[2019-03-21 11:01] LABS: ANISOCYTOSIS 2+; OVALOCYTES 1+; POLYCHROMASIA SLIGHT; SCHISTOCYTES 1+; TARGET CELLS SLIGHT; TEAR DROP CELLS 1+; TOXIC VACUOLATION PRESENT
[2019-03-21 11:02] LABS: HOWELL-JOLLY BODIES PRESENT; MEAN CORPUSCULAR VOLUME 134 fl (80-97)
[2019-03-21 11:03] LABS: PLATELET COMMENT DECREASED
[2019-03-21 11:10] LABS: TROPONIN I < 0.012 ng/mL
[2019-03-21] MEDS ORDERED: CEFTRIAXONE 1 GM/D5W RTU 1 GM/50 ML RTUPB IV ONE (11:37)
[2019-03-21] MEDS ORDERED: IPRATROPIUM/ALBUTEROL 0.5-2.5 MG/3 ML AMPUL NEB ONE (11:38)
--- NOTE | 2019-03-21 11:58 | ER Document Report ---
ED General - General Chief Complaint: Shortness Of Breath Stated Complaint: COUGH,CONGESTION Time Seen by Provider: 03/21/19 10:25 Primary Care Provider: JEFERSON MACARIO MD [Primary Care Provider] - Follow up in 3-5 days Mode of Arrival: Ambulatory Information source: Patient, Relative, [facility] Records Notes: 53-year-old female with polymyositis (on methotrexate), hypertension, atrial fibrillation, right nods presents with complaint of shortness of breath and coug h that has been present for 1 week. Patient describes the cough as persistent, productive with green sputum. She admits to subjective fevers with chills and sweats. She has tried TheraFlu without relief. She does experience her shortness of breath with coughing and minimal activity. She also experiences some burning chest pain with coughing only. Patient denies any recent hospitalizations, sick contacts. TRAVEL OUTSIDE OF THE [place] IN LAST 30 DAYS: No - HPI Onset: Last week Onset/Duration: Gradual, Persistent Quality of pain: Achy, Burning Severity: Mild Associated symptoms: Chest pain, Productive cough, Fever, Leg swelling, Shortness of breath. denies: Headache, Nausea, Vomiting Exacerbated by: Walking, Coughing Relieved by: Denies Similar symptoms previously: Yes Recently seen / treated by doctor: Yes - Related Data Allergies/Adverse Reactions: No Known Allergies Allergy (Verified 03/07/19 12:21) Past Medical History - General Information source: Patient - Social History Smoking Status: Never Smoker Frequency of alcohol use: None Drug Abuse: None Lives with: Spouse/Significant other Family History: Reviewed & Not Pertinent Patient has suicidal ideation: No Patient has homicidal ideation: No - Past Medical History Cardiac Medical History: Reports: Hx Hypertension Renal/ Medical History: Denies: Hx Peritoneal Dialysis Musculoskeletal Medical History: Reports Hx Arthritis - raynauds Psychiatric Medical History: Reports: Hx Depression Past Surgical History: Reports: Hx Cardiac Catheterization - Immunizations Hx Diphtheria, Pertussis, Tetanus Vaccination: Yes Hx Pneumococcal Vaccination: 05/07/13 Review of Systems - Review of Systems Notes: REVIEW OF SYSTEMS: CONSTITUTIONAL : + fever, chills, or sweats. Denies recent illness. Denies weight loss, recent hospitalizations. EENT: Denies visual changes, eye pain. Denies sore throat, oral lesions, difficulty swallowing. CARDIOVASCULAR: +chest pain. Denies palpitations. Denies lower extremity edema. RESPIRATORY: +cough. + shortness of breath, wheezing. GASTROINTESTINAL: Denies abdominal pain or distention. Denies nausea, vomiting, or diarrhea. Denies blood in vomitus, stools, or per rectum. Denies black, tarry stools. Denies constipation. GENITOURINARY: Denies difficulty urinating, painful urination, frequency, blood in urine, or vaginal discharge. MUSCULOSKELETAL: Denies back or neck pain or stiffness. Denies joint pain or swelling. SKIN: Denies rash, lesions or sores. HEMATOLOGIC : Denies easy bruising or bleeding. LYMPHATIC: Denies swollen glands. NEUROLOGICAL: Denies confusion or altered mental status. Denies loss of consciousness. Denies dizziness or lightheadedness. Denies headache. Denies weakness or paralysis. Denies problems difficulty with ambulation, slurred speech. Denies sensory loss, numbness, or tingling. Denies seizures. PSYCHIATRIC: Denies anxiety or stress. Denies depression, suicidal ideation, or homicidal ideation. Denies visual or auditory hallucinations. Physical Exam - Vital signs Vitals: Temp Pulse Resp BP 99.4 F 115 H 20 126/65 H 03/21/19 09:27 03/21/19 09:27 03/21/19 09:27 03/21/19 09:27 - Notes Notes: PHYSICAL EXAMINATION: GENERAL: Well-appearing, well-nourished and in no acute distress. HEAD: Atraumatic, normocephalic. EYES: Pupils equal round and reactive to light, extraocular movements intact, conjunctiva are normal. ENT: Nares patent, oropharynx clear without exudates. Moist mucous membranes. NECK: Normal range of motion, supple without lymphadenopathy LUNGS: Coarse breath sounds in the right lower lung field. No increased work of breathing, no accessory muscle use. HEART: Tachycardic, regular rhythm no murmurs ABDOMEN: Soft, nontender, nondistended abdomen. No guarding, no rebound. No masses appreciated. Female : deferred Musculoskeletal: Normal range of motion, bilateral 1+ pitting edema no cyanosis. NEUROLOGICAL: Cranial nerves grossly intact. Normal speech, normal gait. Normal sensory, motor exams PSYCH: Normal mood, normal affect. SKIN: Warm, Dry, normal turgor, no rashes or lesions noted. Course - Re-evaluation Re-evalutation: Laboratory 03/21/19 03/21/19 03/21/19 10:05 10:05 10:05 WBC 1.4 L* RBC 1.67 L Hgb 8.0 L Hct 22.3 L MCV 134 H D MCH 48.3 H MCHC 36.1 H RDW 20.8 H Plt Count 102 L Total Counted 50 Seg Neutrophils % Not Reportable Seg Neuts % (Manual) 66 Lymphocytes % Not Reportable Lymphocytes % (Manual) 30 Monocytes % Not Reportable Monocytes % (Manual) 0 L Eosinophils % Not Reportable Eosinophils % (Manual) 2 Basophils % Not Reportable Basophils % (Manual) 2 Absolute Neutrophils Not Reportable Abs Neuts (Manual) 0.9 L Absolute Lymphocytes Not Reportable Abs Lymphs (Manual) 0.4 L Absolute Monocytes Not Reportable Abs Monocytes (Manual) 0.0 L Absolute Eosinophils Not Reportable Absolute Eos (Manual) 0.0 Absolute Basophils Not Reportable Abs Basophils (Manual) 0.0 Nucleated RBCs 2 Toxic Vacuolation PRESENT Dohle Bodies PRESENT Platelet Comment DECREASED Polychromasia SLIGHT Anisocytosis 2+ Macrocytosis 4+ Target Cells SLIGHT Tear Drop Cells 1+ Ovalocytes 1+ Ruelas-Dillingham Bodies PRESENT Schistocytes 1+ Sodium 137.7 Potassium 3.5 L Chloride 103 Carbon Dioxide 26 Anion Gap 9 BUN 8 Creatinine 0.68 Est GFR ( Amer) > 60 Est GFR (Non-Af Amer) > 60 Glucose 105 Calcium 8.2 L Total Bilirubin 3.8 H Direct Bilirubin 1.2 H Neonat Total Bilirubin Not Reportable Neonat Direct Bilirubin Not Reportable Neonat Indirect Bili Not Reportable AST 52 H ALT 25 Alkaline Phosphatase 54 Creatine Kinase 568 H CK-MB (CK-2) 1.52 Troponin I < 0.012 NT-Pro-B Natriuret Pep Total Protein 5.9 L Albumin 2.9 L Urine Color Urine Appearance Urine pH Ur Specific [place] Urine Protein Urine Glucose (UA) Urine Ketones Urine Blood Urine Nitrite Urine Bilirubin Urine Urobilinogen Ur Leukocyte Esterase Urine WBC (Auto) Urine RBC (Auto) Squamous Epi Cells Auto Urine Mucus (Auto) Urine Ascorbic Acid 03/21/19 03/21/19 10:05 12:15 WBC RBC Hgb Hct MCV MCH MCHC RDW Plt Count Total Counted Seg Neutrophils % Seg Neuts % (Manual) Lymphocytes % Lymphocytes % (Manual) Monocytes % Monocytes % (Manual) Eosinophils % Eosinophils % (Manual) Basophils % Basophils % (Manual) Absolute Neutrophils Abs Neuts (Manual) Absolute Lymphocytes Abs Lymphs (Manual) Absolute Monocytes Abs Monocytes (Manual) Absolute Eosinophils Absolute Eos (Manual) Absolute Basophils Abs Basophils (Manual) Nucleated RBCs Toxic Vacuolation Dohle Bodies Platelet Comment Polychromasia Anisocytosis Macrocytosis Target Cells Tear Drop Cells Ovalocytes Ruelas-[place] Bodies Schistocytes Sodium Potassium Chloride Carbon Dioxide Anion Gap BUN Creatinine Est GFR ( Amer) Est GFR (Non-Af Amer) Glucose Calcium Total Bilirubin Direct Bilirubin Neonat Total Bilirubin Neonat Direct Bilirubin Neonat Indirect Bili AST ALT Alkaline Phosphatase Creatine Kinase CK-MB (CK-2) Troponin I NT-Pro-B Natriuret Pep 192 Total Protein Albumin Urine Color CHERYL Urine Appearance SLIGHTLY-CLOUDY Urine pH 6.0 Ur Specific [place] 1.032 Urine Protein 30 H Urine Glucose (UA) NEGATIVE Urine Ketones TRACE H Urine Blood MODERATE H Urine Nitrite NEGATIVE Urine Bilirubin NEGATIVE Urine Urobilinogen 4.0 H Ur Leukocyte Esterase TRACE H Urine WBC (Auto) 10 Urine RBC (Auto) 32 Squamous Epi Cells Auto 3 Urine Mucus (Auto) MANY Urine Ascorbic Acid NEGATIVE Chest X-Ray 03/21/19 09:30 IMPRESSION: Questionable minimal focal density right base that may reflect summation density exaggerated by poor inspiratory effort. Repeat PA in deep inspiration should be considered when the patient is clinically stable. Minimal subsegmental atelectasis left base. Chest/Abdomen CTA 03/21/19 11:34 IMPRESSION: There is no evidence of pulmonary emboli. There is no aortic aneurysm or dissection. Small pleural effusions. Ascites. Cirrhosis. Splenomegaly. Temp Pulse Resp BP Pulse Ox 100.1 F 115 H 19 114/102 H 95 03/21/19 10:30 03/21/19 09:27 03/21/19 10:00 03/21/19 10:01 03/21/19 09:48 03/21/19 12:05 53-year-old female presents with complaint of shortness of breath, productive cough, fever, chills for 1 week. Vital signs reviewed and patient is tachycardic but afebrile. She has no increased work of breathing but does have coarse breath sounds in the right lower lung field. Bedside ultrasound was obtained and showed no pericardial effusion, B-lines. Patient did receive IV fluids, ceftriaxone and a DuoNeb. Vital signs reviewed and patient has a low- grade temperature of 100.1 and is tachycardic and hypertensive. She does not appear toxic or dehydrated. She is in no respiratory distress. CBC does show leukopenia, thrombocytopenia which are both side effects of methotrexate and Imuran which the patient is taking currently. Patient did receive breathing treatments, IV ceftriaxone and on reevaluation she states her shortness of breath has improved. CTA was obtained and showed no evidence of PE, aneurysm, dissection but did show a small pleural effusion. 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 Patient and are comfortable with discharge home. Patient will be discharged home with albuterol and doxycycline. 03/21/19 12:59 03/21/19 13:00 - Vital Signs Vital signs: Temp Pulse Resp BP Pulse Ox 100.1 F 115 H 19 114/102 H 95 03/21/19 10:30 03/21/19 09:27 03/21/19 10:00 03/21/19 10:01 03/21/19 09:48 - Laboratory Result Diagrams: 03/21/19 10:05 03/21/19 10:05 Laboratory results interpreted by me: 03/21/19 03/21/19 03/21/19 10:05 10:05 12:15 WBC 1.4 L* RBC 1.67 L Hgb 8.0 L Hct 22.3 L MCV 134 H D MCH 48.3 H MCHC 36.1 H RDW 20.8 H Plt Count 102 L Monocytes % (Manual) 0 L Abs Neuts (Manual) 0.9 L Abs Lymphs (Manual) 0.4 L Abs Monocytes (Manual) 0.0 L Potassium 3.5 L Calcium 8.2 L Total Bilirubin 3.8 H Direct Bilirubin 1.2 H AST 52 H Creatine Kinase 568 H Total Protein 5.9 L Albumin 2.9 L Urine Protein 30 H Urine Ketones TRACE H Urine Blood MODERATE H Urine Urobilinogen 4.0 H Ur Leukocyte Esterase TRACE H - Diagnostic Test Radiology reviewed: Image reviewed, Reports reviewed - EKG Interpretation by Me EKG shows normal: Sinus rhythm Rate: Tachycardia Rhythm: NSR When compared to previous EKG there are: No significant change Discharge - Discharge Clinical Impression: Polymyositis associated with autoimmune disease, Small pleural effusion, Cough Leukopenia Qualifiers: Leukopenia type: unspecified Qualified Code(s): D72.819 - Decreased white blood cell count, unspecified Hypertension Qualifiers: Hypertension type: unspecified Qualified Code(s): I10 - Essential (primary) hypertension Pneumonia Qualifiers: Pneumonia type: due to unspecified organism Laterality: right Lung location: unspecified part of lung Qualified Code(s): J18.9 - Pneumonia, unspecified organism Dyspnea Qualifiers: Dyspnea type: unspecified Qualified Code(s): R06.00 - Dyspnea, unspecified Condition: Good Disposition: HOME, SELF-CARE Instructions: Pleural Effusion ([facility]), Pneumonia ([facility]) Additional Instructions: You have been diagnosed with a pneumonia. It is very important that you take all of your antibiotics until they are gone even if you are feeling better. Please return to the emergency department immediately if you began having worsening shortness of breath, become confused, have worsening pain, pass out, have persistent vomiting that prevents you from being able to drink fluids for more than 12 hours, or have any other symptoms that are worrisome to you. Please follow-up with your primary care doctor in the next 1-2 days. Prescriptions: Doxycycline Hyclate 100 mg PO BID 7 Days #14 capsule Forms: Elevated Blood Pressure, Parent Work Note, Return to School Referrals: JEFERSON MACARIO MD [Primary Care Provider] - Follow up in 3-5 days
--- NOTE | 2019-03-21 12:36 | RADIOLOGY REPORT (SQ) ---
EXAM DESCRIPTION: CTA CHEST COMPLETED DATE/TIME: 03/21/2019 11:59 am REASON FOR STUDY: sob COMPARISON: None. TECHNIQUE: CT scan of the chest performed using helical scanning technique with dynamic intravenous contrast injection. Images reviewed with lung, soft tissue and bone windows. Reconstructed coronal and sagittal MPR images reviewed. Additional 3 dimensional post-processing performed to develop Maximal Intensity Projection images (OK P). All images stored on PACS. All CT scanners at this facility use dose modulation, iterative reconstruction, and/or weight based d osing when appropriate to reduce radiation dose to as low as reasonably achievable (ALARA). [facility]: Dose Right [facility]: CareDose [facility]: Dose Right [facility]: Teradose 4D [facility]: [employer] CONTRAST TYPE AND DOSE: contrast/concentration: Isovue 350.00 mg/ml; Total Contrast Delivered: 60.0 ml; Total Saline Delivered: 77.0 ml Contrast bolus adequate for pulmonary arteries and aorta. RENAL FUNCTION: BUN 8 creatinine 0.68 RADIATION DOSE: CT Rad equipment meets quality standard of care and radiation dose reduction techniq ues were employed. CTDIvol: 9.9 - 14.3 mGy. DLP: 500 mGy-cm. . LIMITATIONS: None. FINDINGS: LUNGS AND PLEURA: Subsegmental atelectasis in the lung bases. Small effusions. No mass. AORTA AND GREAT VESSELS: No aneurysm. No dissection. HEART: No pericardial effusion. No significant coronary artery calcifications. PULMONARY ARTERIES: No emboli visualized in the main pulmonary arteries or the segmental branches. HILAR AND MEDIASTINAL STRUCTURES: No identified masses or abnormal nodes. HARDWARE: None in the chest. UPPER ABDOMEN: Ascites, hepatic cirrhosis. Splenomegaly. THYROID AND OTHER SOFT TISSUES: No masses. No adenopathy. BONES: No acute or significant finding. 3D MIPS: Confirm above findings. OTHER: No other significant finding. IMPRESSION: There is no evidence of pulmonary emboli. There is no aortic aneurysm or dissection. S mall pleural effusions. Ascites. Cirrhosis. Splenomegaly. COMMENT: Quality ID # [id number]: Final reports with documentation of one or more dose reduction techniques (e.g., Automated exposure control, adjustment of the mA and/or kV according to patient size, use of iterative reconstruction technique) TECHNICAL DOCUMENTATION: JOB ID: [id number] [employer]- All Rights Reserved Reading location - IP/workstation name: [email or web address]
[2019-03-21] MEDS ORDERED: ALBUTEROL SULFATE HFA (90 MCG/PUFF) 8 GM MDI (1 MDI/ER DISP) IH PRN (12:51)
[2019-03-21 12:52] LABS: APPEARANCE,URINE SLIGHTLY-CLOUDY; BILIRUBIN,URINE NEGATIVE (NEGATIVE); COLOR,URINE AMBER; GLUCOSE, URINE NEGATIVE (NEGATIVE); KETONES,URINE TRACE mg/dL (NEGATIVE); LEUKOCYTE ESTERASE,URINE TRACE (NEGATIVE); NITRITE,URINE NEGATIVE (NEGATIVE); PROTEIN,URINE 30 mg/dL (NEGATIVE); URINE SPECIFIC GRAVITY 1.032
[2019-03-21 13:19] VITALS: BP 118/71
[2019-03-22 13:52] LABS: PATH REVIEW PATHOLOGIST REVIEWED
== END 2019-03-21 13:19 | disposition home or self-care (01) ==
LOC: ER 09:21
DX: M33.20 Polymyositis, organ involvement unspecified (principal); J90 Pleural effusion, not elsewhere classified; D72.819 Decreased white blood cell count, unspecified; J18.9 Pneumonia, unspecified organism; R06.00 Dyspnea, unspecified; R05 Cough; I10 Essential (primary) hypertension; R06.02 Shortness of breath; R09.81 Nasal congestion; I48.91 Unspecified atrial fibrillation; R50.9 Fever, unspecified; R07.9 Chest pain, unspecified; M79.89 Other specified soft tissue disorders
CPT/HCPCS: 93005; 94640; 99284; 96361; 96365; 36415; 82553; 82550; 85025; 80053; 81001; 84484; 83880; 71045; 71275; 93010; A9270 ×2; J7040; J0696; J3490; J7620

== ENCOUNTER → 2019-07-06 | Outpatient (CLI) | payer MEDICARE ==
--- NOTE | 2019-07-06 14:48 | RADIOLOGY REPORT (SQ) ---
EXAM DESCRIPTION: MRI ABDOMEN COMBO COMPLETED DATE/TIME: 07/06/2019 12:15 pm REASON FOR STUDY: (R94.5)ABNORMAL RESULTS OF LIVER FUNCTION STUDIES R94.5 ABNORMAL RESULTS OF LIVER FUNCTION STUDIES COMPARISON: CT ANGIO CHEST 03/21/2019 TECHNIQUE: Multiplanar multisequence imaging performed without and with contrast including sagittal, axial and coronal T2, axial T1, axial gradient fat sat T1, axial, sagittal and coronal fat sat T1 po st contrast. CONTRAST TYPE AND DOSE: 20 mL Dotarem. RENAL FUNCTION: Not indicated. ACR Type II contrast agent associated with few, if any, unconfounded cases of NSF LIMITATIONS: None. FINDINGS: LIVER: Micronodular cirrhosis present. Liver is normal size, without biliary ductal dilat ation dominant mass or abnormal focal enhancement. SPLEEN: Normal size. Massive left upper quadrant varices are present along the splenic hilum extendi ng down two-view left renal vein, likely a spontaneous splenorenal shunt. PANCREAS: No masses. No adjacent inflammation or peripancreatic fluid collections. Pancreatic duct no t dilated. GALLBLADDER: No gallbladder wall thickening or pericholecystic fluid. 3 mm stone versus polyp within the gallbladder on axial T2 image 16 ADRENAL GLANDS: No significant masses or asymmetry. RIGHT KIDNEY AND URETER: No masses. No hydronephrosis. LEFT KIDNEY AND URETER: No masses. No hydronephrosis. AORTA AND VESSELS: No aneurysm. No dissection. Renal arteries, SMA, celiac without stenosis. RETROPERITONEUM: No retroperitoneal adenopathy, hemorrhage or masses. BOWEL: Not well seen. ABDOMINAL WALL AND PERITONEUM: Small amount of right upper quadrant free fluid, less prominent than o n the CT angio chest 03/21/2019 where a moderate to large amount of ascites was present in the upper a bdomen BONES: No acute or significant findings. OTHER: Normal contrast enhancement of the main portal vein, superior mesenteric vein, hepatic veins. IMPRESSION: Micronodular cirrhosis. Spontaneous splenorenal shunt. Trace upper abdominal ascites TECHNICAL DOCUMENTATION: JOB ID: [id number]- All Rights Reserved Reading location - IP/workstation name: [id number]
== END ==
LOC: RAD 10:53
PROVIDERS: ATTEND Physician Assistant Medical
DX: R77.2 Abnormality of alphafetoprotein (principal); R94.5 Abnormal results of liver function studies; R17 Unspecified jaundice
CPT/HCPCS: 82565; 74183; A9576